=== PATIENT | male | born 1940 | race Caucasian/White ===

== ENCOUNTER 2019-03-12 06:55 | Day surgery (SDC) | payer MEDICARE, OTHER ==
[2019-03-12] MEDS ORDERED: Lidocaine 1% with EPINEPHrine 1:100,000 20 ML MDV INJECT ONE (06:56)
[2019-03-12] MEDS ORDERED: Lidocaine 1% with EPINEPHrine 1:100,000 20 ML MDV ONE (07:34)
[2019-03-12] MEDS ORDERED: Lidocaine 1% with EPINEPHrine 1:100,000 30 ML MDV INJECT ONE ×2 (09:19→09:28)
--- NOTE | 2019-03-12 19:54 | OR ---
DATE: 03/12/2019 PREOPERATIVE DIAGNOSIS: Infected sebaceous cyst, left flank of the left back. POSTOPERATIVE DIAGNOSIS: Infected sebaceous cyst, left flank of the left back. PROCEDURE: Incision and drainage with debridement of a 4 cm sebaceous cyst in the posterior back near the left flank. ANESTHESIA: Local. SPECIMEN: Sebaceous cyst. INDICATION FOR PROCEDURE: This 78-year-old male had presented to the [facility] 2 days ago with a chronic draining abscess-appearing lesion on the back. This is in the left flank. OPERATIVE FINDINGS: An infected sebaceous cyst. PROCEDURE IN DETAIL: After adequate local anesthesia, an incision was made over this cyst and carried down into the cyst, which revealed several milliliters of purulent material and some waxy material consistent with a sebaceous cyst. This area was obviously grossly infected, and the cyst wall was simply debrided from the subcutaneous space. The wound was infected. I elected not to close this. This was packed open using two 2 x 2 sponges within the wound. The cyst measured 4 cm in diameter, and on debriding this, there essentially was no margin in excising the rest of the cyst, and primarily is an incision and drainage with debridement. [facility] /[id number]
== END 2019-03-12 12:38 | disposition home or self-care (01) ==
LOC: DL.SDS 06:55
PROVIDERS: ATTEND Surgery
DX: L92.3 Foreign body granuloma of the skin and subcutaneous tissue (principal); E11.9 Type 2 diabetes mellitus without complications; I10 Essential (primary) hypertension; Z88.8 Allergy status to other drugs, medicaments and biological substances; Z79.84 Long term (current) use of oral hypoglycemic drugs; Z79.01 Long term (current) use of anticoagulants; Z79.4 Long term (current) use of insulin; Z79.899 Other long term (current) drug therapy

== ENCOUNTER 2020-08-29 15:28 | Inpatient (IN) | payer MEDICARE, OTHER ==
--- NOTE | 2020-08-29 16:37 | CR ---
PROCEDURE INFORMATION: Exam: XR Chest Exam date and time: 08/29/2020 4:30 PM Age: 80 years old Clinical indication: Other: Chest pain TECHNIQUE: Imaging protocol: XR of the chest Views: 1 view. COMPARISON: No relevant prior studies available. FINDINGS: Tubes, catheters and devices: Left pacemaker. Lungs: Patchy bilateral pulmonary infiltrates suggestive of edema or infection. Pleural spaces: Unremarkable. No pleural effusion. No pneumothorax. Heart/Mediastinum: Unremarkable. No cardiomegaly. Bones/joints: Unremarkable. IMPRESSION: Patchy bilateral pulmonary infiltrates suggestive of edema or infection.
[2020-08-29 17:32] LABS: CORONAVIRUS COVID-19 NAA NEGATIVE (NEGATIVE)
[2020-08-29] MEDS ORDERED: Piperacillin/Tazobactam 3.375 GM in Sodium Chloride 0.9% 100 ML IV ONE (17:32)
--- NOTE | 2020-08-29 18:26 | EDM.PDOC ---
Scribed by Angelique Funk 08/29/20 [id number] for Kacie Joseph NP ED HPI GENERAL MEDICAL PROBLEM - General Chief Complaint: General Stated Complaint: COULDN'T WALK, COULDN'T FEEL URINATING, NOT EATING Time Seen by Provider: 08/29/20 15:42 Source of Information: Reports: Patient, EMS, EMS Notes Reviewed, RN, RN Notes Reviewed History Limitations: Reports: No Limitations - History of Present Illness INITIAL COMMENTS - FREE TEXT/NARRATIVE: Patient is a 80-year-old male who presents to ER per [facility] with complaint of increased weakness and incontinence of urine. states over the past few days he has been much weaker, not able to walk today. His also states his Metoprolol 75mg was increased to 100mg on Sunday. states decreased color in toes today. Patient is on 02 at home Never has had COVD and x2 vaccinations. 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 Onset: Gradual Duration: Getting Worse Location: Reports: Generalized Severity: Severe Improves with: Reports: None Worsens with: Reports: None Associated Symptoms: Reports: No Other Symptoms - Related Data Allergies Allergy/AdvReac Type Severity Reaction Status Date / Time donepezil [From Aricept] AdvReac Mild Diarrhea Verified 08/29/20 18:07 Home Meds: Home Meds Acetaminophen 325 - 650 mg PO ASDIRECTED PRN 06/17/18 [History] Albuterol Sulfate [Proair Hfa] 2 puff INH Q6HR PRN 06/17/18 [History] Aspirin [Adult Low Dose Aspirin EC] 81 mg PO DAILY 06/17/18 [History] Calcium Citrate/Vitamin D3 [Calcium Citrate - Vit D Caplet] 1 tab PO BID 06/17/18 [History] Furosemide 20 mg PO DAILY 06/17/18 [History] Glucosam/Chondroit/C/Manganese [Cosamin Ds Capsule] 1 tab PO BID 06/17/18 [History] Insulin Glarg,Human.Rec.Analog [Lantus Solostar] 45 units INJECT BEDTIME 06/17/18 [History] Latanoprost/Pf [Latanoprost 0.005% Eye Drop] 1 drop EYEBOTH BEDTIME 06/17/18 [History] Memantine [Namenda] 10 mg PO BID 06/17/18 [History] Multivitamin [Multi-Day Vitamins] 1 tab PO DAILY 06/17/18 [History] Tiotropium [Spiriva HandiHaler] 1 cap INH DAILY 06/17/18 [History] Warfarin Sodium [Jantoven] 7.5 mg PO ASDIRECTED 06/17/18 [History] Warfarin Sodium [Jantoven] 10 mg PO ASDIRECTED 06/17/18 [History] atorvaSTATin [Lipitor] 40 mg PO BEDTIME 06/17/18 [History] buPROPion [Wellbutrin SR] 150 mg PO BID 06/17/18 [History] metFORMIN HCl [Glucophage] 1,000 mg PO BID 06/17/18 [History] Cholecalciferol (Vitamin D3) [Vitamin D] 2,000 unit PO DAILY 08/29/20 [History] L.acidoph,Paracasei, B.lactis [Probiotic] 1 each PO DAILY 08/29/20 [History] Metoprolol Succinate [Toprol XL 100mg] 100 mg PO DAILY 08/29/20 [History] Valsartan/Hydrochlorothiazide [Diovan Hct 160-12.5 mg Tab] 1 each PO DAILY 08/29/20 [History] glipiZIDE [Glucotrol] 5 mg PO BIDAC 08/29/20 [History] Past Medical History HEENT History: Reports: Allergic Rhinitis, Impaired Vision Cardiovascular History: Reports: Afib, High Cholesterol, Hypertension, Pacemaker, Stents Other Cardiovascular History: x3 stents Respiratory History: Reports: Bronchitis, Recurrent, SOB Genitourinary History: Reports: Prostate Disorder Musculoskeletal History: Reports: Fracture Other Musculoskeletal History: lef lower arm fracture antoinette inplace Neurological History: Reports: Concussion, Head Trauma, Other (See Below) Other Neuro History: plate in head left side 1970 Psychiatric History: Reports: Depression Endocrine/Metabolic History: Reports: Diabetes, Type II, Obesity/BMI 30+ Hematologic History: Reports: None Immunologic History: Reports: None Oncologic (Cancer) History: Reports: Prostate Dermatologic History: Reports: None - Infectious Disease History Infectious Disease History: Reports: Chicken Pox - Past Surgical History HEENT Surgical History: Reports: None Cardiovascular Surgical History: Reports: Pacer Other Cardiovascular Surgeries/Procedures: 2014 heart pacer GI Surgical History: Reports: Colonoscopy Male Surgical History: Reports: Prostatectomy Other Male Surgeries/Procedures: prostate cancer 2008 Neurological Surgical History: Reports: None Musculoskeletal Surgical History: Reports: Other (See Below) Other Musculoskeletal Surgeries/Procedures:: lef lower arm fracture antoinette inplace Oncologic Surgical History: Reports: None Social & Family History - Family History Family Medical History: No Pertinent Family History - Caffeine Use Caffeine Use: Reports: Coffee Other Caffeine Use: 2 cups ED ROS GENERAL - Review of Systems Review Of Systems: Comprehensive ROS is negative, except as noted in HPI. ED EXAM, GENERAL - Physical Exam Exam: See Below Exam Limited By: Altered Mental Status General Appearance: Moderate Distress Eye Exam: Bilateral Eye: EOMI, Normal Inspection, PERRL Ears: Normal External Exam, Normal Canal, Hearing Grossly Normal, Normal TMs Nose: Normal Inspection, Normal Mucosa, No Blood Throat/Mouth: Normal Inspection, Normal Lips, Normal Teeth, Normal Gums, Normal Oropharynx, Normal Voice, No Airway Compromise Head: Atraumatic, Normocephalic Neck: Normal Inspection, Supple, Non-Tender, Full Range of Motion Respiratory/Chest: Crackles (diminished crackles), Wheezing Cardiovascular: Other (irregular) GI/Abdominal: Normal Bowel Sounds, Soft, Non-Tender, No Organomegaly, No Distention, No Abnormal Bruit, No Mass (Male) Exam: Deferred Rectal (Males) Exam: Deferred Back Exam: Decreased Range of Motion Extremities: Other (weak) Neurological: Confused, Other (altered) Psychiatric: Anxious Skin Exam: Other (pale) Lymphatic: No Adenopathy Course - Vital Signs Last Recorded V/S: Last Vital Signs Temp 99.0 F 08/29/20 16:16 Pulse 104 H 08/29/20 16:16 Resp 22 H 08/29/20 16:16 BP Pulse Ox 99 08/29/20 16:16 - Orders/Labs/Meds Orders: Active Orders 24 hr Category Date Time Status Urinary Catheter Insertion [Insert Urinary Catheter] [ Care 08/29/20 16:30 Ordered OM.PC] Stat CULTURE BLOOD [BC] Stat Lab 08/29/20 16:36 Results CULTURE BLOOD [BC] Stat Lab 08/29/20 16:40 Results INFLUENZA A+B AG SCREEN [RM] Stat Lab 08/29/20 16:38 Ordered REFLEX LACTIC ACID YES OR NO [CHEM] Routine Lab 08/29/20 17:24 Received Blood Culture x2 Reflex Set [OM.PC] Stat Oth 08/29/20 16:16 Ordered Isolation [COMM] Routine Ot 08/29/20 16:17 Active Labs: Laboratory Tests 08/29/20 08/29/20 08/29/20 Range/Units 16:38 16:40 16:40 WBC 19.7 H (5.0-10.0) 10^3/uL RBC 4.89 (4.6-6.2) 10^6/uL Hgb 15.1 (14.0-18.0) g/dL Hct 44.3 (40.0-54.0) % MCV 90.6 (80-100) fL MCH 30.9 (27.0-34.0) pg MCHC 34.1 (33.0-35.0) g/dL Plt Count 258 (150-450) 10^3/uL Neut % (Auto) 81.2 H (42.2-75.2) % Lymph % (Auto) 5.3 L (20.5-50.1) % Banner % (Auto) 13.2 H (2-8) % Eos % (Auto) 0.1 L (1.0-3.0) % Baso % (Auto) 0.2 (0.0-1.0) % Sodium 139 (136-145) mmol/L Potassium 4.0 (3.5-5.1) mmol/L Chloride 99 (98-107) mmol/L Carbon Dioxide 22 (21-32) mmol/L Anion Gap 22.0 H (7-13) mEq/L BUN 30 H (7-18) mg/dL Creatinine 1.77 H (0.70-1.30) mg/dL Est Cr Clr Drug Dosing 37.14 mL/min Estimated GFR (MDRD) 37 BUN/Creatinine Ratio 16.9 (No establ ref range) Glucose 231 H (74-99) mg/dL Lactic Acid (0.4-2.0) mmol/L Calcium 9.4 (8.5-10.1) mg/dL Magnesium 1.9 (1.8-2.4) mg/dL Total Bilirubin 1.9 H (0.2-1.0) mg/dL AST 23 (15-37) U/L ALT 33 (16-63) U/L Alkaline Phosphatase 83 (46-116) U/L Troponin I 0.036 (0.000-0.056) ng/mL B-Natriuretic Peptide 1030 H (0-100) pg/ml Total Protein 7.1 (6.4-8.2) g/dL Albumin 3.6 (3.4-5.0) g/dL Globulin 3.5 Albumin/Globulin Ratio 1.0 Urine Color (YELLOW) Urine Appearance (CLEAR) Urine pH (5.0-9.0) Ur Specific [place] (1.005-1.030) Urine Protein (NEGATIVE) Urine Glucose (UA) (NEGATIVE) Urine Ketones (NEGATIVE) Urine Occult Blood (NEGATIVE) Urine Nitrite (NEGATIVE) Urine Bilirubin (NEGATIVE) Urine Urobilinogen (0.2-1.0) mg/dL Ur Leukocyte Esterase (NEGATIVE) U Hyaline Cast (Auto) Urine RBC /HPF Urine WBC (0-5/HPF) /HPF Ur Epithelial Cells (NOT SEEN) /HPF Urine Bacteria (0-FEW/HPF) /HPF Fine Granular Casts (NOT SEEN) /LPF Urine Mucus (NOT SEEN) /LPF Influenza Type A RNA Negative (NEGATIVE) Influenza Type B RNA Negative (NEGATIVE) SARS-CoV-2 RNA (JOEL) Negative (NEGATIVE) 08/29/20 08/29/20 Range/Units 16:40 16:46 WBC (5.0-10.0) 10^3/uL RBC (4.6-6.2) 10^6/uL Hgb (14.0-18.0) g/dL Hct (40.0-54.0) % MCV (80-100) fL MCH (27.0-34.0) pg MCHC (33.0-35.0) g/dL Plt Count (150-450) 10^3/uL Neut % (Auto) (42.2-75.2) % Lymph % (Auto) (20.5-50.1) % Banner % (Auto) (2-8) % Eos % (Auto) (1.0-3.0) % Baso % (Auto) (0.0-1.0) % Sodium (136-145) mmol/L Potassium (3.5-5.1) mmol/L Chloride (98-107) mmol/L Carbon Dioxide (21-32) mmol/L Anion Gap (7-13) mEq/L BUN (7-18) mg/dL Creatinine (0.70-1.30) mg/dL Est Cr Clr Drug Dosing mL/min Estimated GFR (MDRD) BUN/Creatinine Ratio (No establ ref range) Glucose (74-99) mg/dL Lactic Acid 6.2 H* (0.4-2.0) mmol/L Calcium (8.5-10.1) mg/dL Magnesium (1.8-2.4) mg/dL Total Bilirubin (0.2-1.0) mg/dL AST (15-37) U/L ALT (16-63) U/L Alkaline Phosphatase (46-116) U/L Troponin I (0.000-0.056) ng/mL B-Natriuretic Peptide (0-100) pg/ml Total Protein (6.4-8.2) g/dL Albumin (3.4-5.0) g/dL Globulin Albumin/Globulin Ratio Urine Color Yellow (YELLOW) Urine Appearance Slightly cloudy (CLEAR) Urine pH 5.0 (5.0-9.0) Ur Specific [place] 1.025 (1.005-1.030) Urine Protein 30 H (NEGATIVE) Urine Glucose (UA) 500 H (NEGATIVE) Urine Ketones Trace H (NEGATIVE) Urine Occult Blood Moderate H (NEGATIVE) Urine Nitrite Negative (NEGATIVE) Urine Bilirubin Negative (NEGATIVE) Urine Urobilinogen 0.2 (0.2-1.0) mg/dL Ur Leukocyte Esterase Negative (NEGATIVE) U Hyaline Cast (Auto) Moderate Urine RBC >100 H /HPF Urine WBC 0-5 (0-5/HPF) /HPF Ur Epithelial Cells Few (NOT SEEN) /HPF Urine Bacteria Rare (0-FEW/HPF) /HPF Fine Granular Casts Few H (NOT SEEN) /LPF Urine Mucus Few H (NOT SEEN) /LPF Influenza Type A RNA (NEGATIVE) Influenza Type B RNA (NEGATIVE) SARS-CoV-2 RNA (JOEL) (NEGATIVE) Meds: Medications Discontinued Medications Generic Name Dose Route Start Last Admin Trade Name Freq PRN Reason Stop Dose Admin Piperacillin Sod/Tazobactam 100 mls @ 200 mls/hr 08/29/20 17:32 08/29/20 17:39 Sod 3.375 gm/ Sodium Chloride IV 08/29/20 18:01 200 mls/hr ONETIME ONE Administration - Radiology Interpretation Free Text/Narrative:: Chest xray: PROCEDURE INFORMATION: Exam: XR Chest Exam date and time: 08/29/2020 4:30 PM Age: 80 years old Clinical indication: Other: Chest pain TECHNIQUE: Imaging protocol: XR of the chest Views: 1 view. COMPARISON: No relevant prior studies available. FINDINGS: Tubes, catheters and devices: Left pacemaker. Lungs: Patchy bilateral pulmonary infiltrates suggestive of edema or infection. Pleural spaces: Unremarkable. No pleural effusion. No pneumothorax. Heart/Mediastinum: Unremarkable. No cardiomegaly. Bones/joints: Unremarkable. IMPRESSION: Patchy bilateral pulmonary infiltrates suggestive of edema or infection. Thank you for allowing us to participate in the care of your patient. Dictated and Authenticated by: Millie Khan MD 08/29/2020 4:37 PM Central Time ([place] & [place]) See rad report - Re-Assessments/Exams Free Text/Narrative Re-Assessment/Exam: 08/29/20 18:24 Discussed patient case with Dr. Bravo who agreed to accept the patient for acute admission. Departure - Departure Time of Disposition: 17:55 Disposition: Admitted As Inpatient 67 Condition: Fair Clinical Impression: Pneumonia Qualifiers: Pneumonia type: due to unspecified organism Laterality: bilateral Lung location: unspecified part of lung Qualified Code(s): J18.9 - Pneumonia, unspecified organism - Discharge Information *PRESCRIPTION DRUG MONITORING PROGRAM REVIEWED*: No *COPY OF PRESCRIPTION DRUG MONITORING REPORT IN PATIENT FRANK: No Sepsis Event Note (ED) - Focused Exam Vital Signs: Vital Signs Temp Pulse Resp Pulse Ox 08/29/20 16:16 99.0 F 104 H 22 H 99 - My Orders Last 24 Hours: My Active Orders 08/29/20 16:16 Blood Culture x2 Reflex Set [OM.PC] Stat 08/29/20 16:17 Isolation [COMM] Routine 08/29/20 16:30 Urinary Catheter Insertion [Insert Urinary Catheter] [OM.PC] Stat 08/29/20 16:36 CULTURE BLOOD [BC] Stat 08/29/20 16:38 INFLUENZA A+B AG SCREEN [RM] Stat 08/29/20 16:40 CULTURE BLOOD [BC] Stat 08/29/20 17:24 REFLEX LACTIC ACID YES OR NO [CHEM] Routine - Assessment/Plan Last 24 Hours: My Active Orders 08/29/20 16:16 Blood Culture x2 Reflex Set [OM.PC] Stat 08/29/20 16:17 Isolation [COMM] Routine 08/29/20 16:30 Urinary Catheter Insertion [Insert Urinary Catheter] [OM.PC] Stat 08/29/20 16:36 CULTURE BLOOD [BC] Stat 08/29/20 16:38 INFLUENZA A+B AG SCREEN [RM] Stat 08/29/20 16:40 CULTURE BLOOD [BC] Stat 08/29/20 17:24 REFLEX LACTIC ACID YES OR NO [CHEM] Routine I have read and agree with the documentation that has been completed regarding this visit. By signing this record, I attest that the documentation was completed in my physical presence and is an accurate record of the encounter.
--- NOTE | 2020-08-29 18:40 | PCM.HP ---
H&P History of Present Illness - General Date of Service: 08/29/20 Admit Problem/Dx: Admission Diagnosis/Problem Admission Diagnosis/Problem Pneumonia Source of Information: Patient, Family History Limitations: Reports: Other (Mild cognitive impairment) - History of Present Illness Initial Comments - Free Text/Narative: Patient is a 80-year-old male with a medical history of hypertension, type 2 diabetes mellitus, CAD, atrial fibrillation status post pacemaker, chronic an ticoagulation with Coumadin, CKD, hyperlipidemia, chronic diastolic CHF, prostate cancer who presented to the ER with complaints of generalized weakness, urinary incontinence and shortness of breath. History difficult to obtain from patient due to mild cognitive impairment Patient reports that over the past few days patient has become very weak more than usual and short of breath with activity. In the past couple days he has had urinary incontinence mostly because he is unable to get to the bathroom quickly enough due to his weakness before he urinates. He has had temperatures of 99.9 at home, has had occasional coughing which is nonproductive. He denies chest pain, dizziness, diarrhea, abdominal pain, nausea, vomiting. Leg swelling is chronic and unchanged. According to his , his metoprolol was recently increased from 75 mg to 100 mg daily 2 days ago. Labs showed WBC of 19.7, creatinine of 1.77, glucose of 231, lactic acid of 6.2, BNP of 1030, troponin was negative. UA was negative for UTI but showed trace blood. Covid and influenza test were negative. Chest x-ray showed bilateral patchy pulmonary infiltrates suggestive of edema or infection. - Related Data Allergies/Adverse Reactions: Allergies Allergy/AdvReac Type Severity Reaction Status Date / Time donepezil [From Aricept] AdvReac Mild Diarrhea Verified 08/29/20 18:07 Home Medications: Home Meds Acetaminophen 325 - 650 mg PO ASDIRECTED PRN 06/17/18 [History] Albuterol Sulfate [Proair Hfa] 2 puff INH Q6HR PRN 06/17/18 [History] Aspirin [Adult Low Dose Aspirin EC] 81 mg PO BEDTIME 06/17/18 [History] Calcium Citrate/Vitamin D3 [Calcium Citrate - Vit D Caplet] 1 tab PO BID 06/17/18 [History] Furosemide 20 mg PO DAILY 06/17/18 [History] Glucosam/Chondroit/C/Manganese [Cosamin Ds Capsule] 1 tab PO BID 06/17/18 [History] Insulin Glarg,Human.Rec.Analog [Lantus Solostar] 45 units INJECT BEDTIME 06/17/18 [History] Latanoprost/Pf [Latanoprost 0.005% Eye Drop] 1 drop EYEBOTH BID 06/17/18 [History] Memantine [Namenda] 10 mg PO BID 06/17/18 [History] Multivitamin [Multi-Day Vitamins] 1 tab PO DAILY 06/17/18 [History] Tiotropium [Spiriva HandiHaler] 1 cap INH DAILY 06/17/18 [History] Warfarin Sodium [Jantoven] 7.5 mg PO ASDIRECTED 06/17/18 [History] Warfarin Sodium [Jantoven] 10 mg PO ASDIRECTED 06/17/18 [History] atorvaSTATin [Lipitor] 40 mg PO BEDTIME 06/17/18 [History] buPROPion [Wellbutrin SR] 150 mg PO DAILY 06/17/18 [History] metFORMIN HCl [Glucophage] 1,000 mg PO BID 06/17/18 [History] Cholecalciferol (Vitamin D3) [Vitamin D] 2,000 unit PO DAILY 08/29/20 [History] L.acidoph,Paracasei, B.lactis [Probiotic] 1 each PO DAILY 08/29/20 [History] Metoprolol Succinate [Toprol XL 100mg] 100 mg PO DAILY 08/29/20 [History] Valsartan/Hydrochlorothiazide [Diovan Hct 160-12.5 mg Tab] 1 each PO DAILY 08/29/20 [History] glipiZIDE [Glucotrol] 5 mg PO BIDAC 08/29/20 [History] Past Medical History HEENT History: Reports: Allergic Rhinitis, Impaired Vision Cardiovascular History: Reports: Afib, High Cholesterol, Hypertension, Pacemaker, Stents Other Cardiovascular History: x3 stents Respiratory History: Reports: Bronchitis, Recurrent, SOB Genitourinary History: Reports: Prostate Disorder Musculoskeletal History: Reports: Fracture Other Musculoskeletal History: lef lower arm fracture antoinette inplace Neurological History: Reports: Concussion, Head Trauma, Other (See Below) Other Neuro History: plate in head left side 1970 Psychiatric History: Reports: Depression Endocrine/Metabolic History: Reports: Diabetes, Type II, Obesity/BMI 30+ Hematologic History: Reports: None Immunologic History: Reports: None Oncologic (Cancer) History: Reports: Prostate Dermatologic History: Reports: Decubitus Ulcer - Infectious Disease History Infectious Disease History: Reports: Chicken Pox - Past Surgical History HEENT Surgical History: Reports: None Cardiovascular Surgical History: Reports: Pacer Other Cardiovascular Surgeries/Procedures: 2014 heart pacer GI Surgical History: Reports: Colonoscopy Male Surgical History: Reports: Prostatectomy Other Male Surgeries/Procedures: prostate cancer 2007 Neurological Surgical History: Reports: None Musculoskeletal Surgical History: Reports: Other (See Below) Other Musculoskeletal Surgeries/Procedures:: lef lower arm fracture antoinette inplace Oncologic Surgical History: Reports: None Social & Family History - Family History Family Medical History: No Pertinent Family History - Tobacco Use Tobacco Use Status *Q: Former Tobacco User Used Tobacco, but Quit: Yes Month/Year Tobacco Last Used: 07/1969 - Caffeine Use Caffeine Use: Reports: Coffee Other Caffeine Use: 2 cups - Recreational Drug Use Recreational Drug Use: No H&P Review of Systems - Review of Systems: Review Of Systems: See Below General: Reports: Weakness HEENT: Reports: No Symptoms Pulmonary: Reports: Shortness of Breath, Cough Cardiovascular: Reports: No Symptoms Gastrointestinal: Reports: No Symptoms Genitourinary: Reports: Incontinence. Denies: Burning, Pain Musculoskeletal: Reports: No Symptoms Skin: Reports: No Symptoms Psychiatric: Reports: No Symptoms Neurological: Reports: No Symptoms Hematologic/Lymphatic: Reports: No Symptoms Immunologic: Reports: No Symptoms Exam - Exam Exam: See Below - Vital Signs Vital Signs: Last Vital Signs Temp 99.0 F 08/29/20 18:06 Pulse 121 H 08/29/20 18:06 Resp 20 08/29/20 18:06 BP 121/94 H 08/29/20 18:06 Pulse Ox 95 08/29/20 18:06 Weight: 254 lb 3.2 oz - Exam General: Alert, Oriented, 4 HEENT: Conjunctiva Clear Neck: Supple, Trachea Midline, 2 Lungs: Rales Cardiovascular: Regular Rate, Regular Rhythm, Tachycardia GI/Abdominal Exam: Normal Bowel Sounds, Soft, Non-Tender, No Organomegaly, No Distention, No Abnormal Bruit, No Mass, Pelvis Stable Back Exam: Normal Inspection, Full Range of Motion, NT Extremities: Normal Inspection, Normal Range of Motion, Non-Tender, No Pedal Edema, Normal Capillary Refill Skin: Warm, Dry, Intact Neurological: Cranial Nerves Intact, Reflexes Equal Bilateral Neuro Extensive - Mental Status: Alert, Normal Mood/Affect, Normal Cognition, Disorientation to Time Neuro Extensive - Motor, Sensory, Reflexes: CN II-XII Intact, Normal Gait, Normal Reflexes Psychiatric: Alert, Normal Affect, Normal Mood - Patient Data Lab Results Last 24 hrs: Laboratory Results - last 24 hr 08/29/20 08/29/20 08/29/20 Range/Units 16:38 16:40 16:40 WBC 19.7 H (5.0-10.0) 10^3/uL RBC 4.89 (4.6-6.2) 10^6/uL Hgb 15.1 (14.0-18.0) g/dL Hct 44.3 (40.0-54.0) % MCV 90.6 (80-100) fL MCH 30.9 (27.0-34.0) pg MCHC 34.1 (33.0-35.0) g/dL Plt Count 258 (150-450) 10^3/uL Neut % (Auto) 81.2 H (42.2-75.2) % Lymph % (Auto) 5.3 L (20.5-50.1) % [place] % (Auto) 13.2 H (2-8) % Eos % (Auto) 0.1 L (1.0-3.0) % Baso % (Auto) 0.2 (0.0-1.0) % Sodium 139 (136-145) mmol/L Potassium 4.0 (3.5-5.1) mmol/L Chloride 99 (98-107) mmol/L Carbon Dioxide 22 (21-32) mmol/L Anion Gap 22.0 H (7-13) mEq/L BUN 30 H (7-18) mg/dL Creatinine 1.77 H (0.70-1.30) mg/dL Est Cr Clr Drug Dosing 37.14 mL/min Estimated GFR (MDRD) 37 BUN/Creatinine Ratio 16.9 (No establ ref range) Glucose 231 H (74-99) mg/dL Lactic Acid (0.4-2.0) mmol/L Calcium 9.4 (8.5-10.1) mg/dL Magnesium 1.9 (1.8-2.4) mg/dL Total Bilirubin 1.9 H (0.2-1.0) mg/dL AST 23 (15-37) U/L ALT 33 (16-63) U/L Alkaline Phosphatase 83 (46-116) U/L Troponin I 0.036 (0.000-0.056) ng/mL B-Natriuretic Peptide 1030 H (0-100) pg/ml Total Protein 7.1 (6.4-8.2) g/dL Albumin 3.6 (3.4-5.0) g/dL Globulin 3.5 Albumin/Globulin Ratio 1.0 Urine Color (YELLOW) Urine Appearance (CLEAR) Urine pH (5.0-9.0) Ur Specific [place] (1.005-1.030) Urine Protein (NEGATIVE) Urine Glucose (UA) (NEGATIVE) Urine Ketones (NEGATIVE) Urine Occult Blood (NEGATIVE) Urine Nitrite (NEGATIVE) Urine Bilirubin (NEGATIVE) Urine Urobilinogen (0.2-1.0) mg/dL Ur Leukocyte Esterase (NEGATIVE) U Hyaline Cast (Auto) Urine RBC /HPF Urine WBC (0-5/HPF) /HPF Ur Epithelial Cells (NOT SEEN) /HPF Urine Bacteria (0-FEW/HPF) /HPF Fine Granular Casts (NOT SEEN) /LPF Urine Mucus (NOT SEEN) /LPF Influenza Type A RNA Negative (NEGATIVE) Influenza Type B RNA Negative (NEGATIVE) SARS-CoV-2 RNA (JOEL) Negative (NEGATIVE) 08/29/20 08/29/20 Range/Units 16:40 16:46 WBC (5.0-10.0) 10^3/uL RBC (4.6-6.2) 10^6/uL Hgb (14.0-18.0) g/dL Hct (40.0-54.0) % MCV (80-100) fL MCH (27.0-34.0) pg MCHC (33.0-35.0) g/dL Plt Count (150-450) 10^3/uL Neut % (Auto) (42.2-75.2) % Lymph % (Auto) (20.5-50.1) % [place] % (Auto) (2-8) % Eos % (Auto) (1.0-3.0) % Baso % (Auto) (0.0-1.0) % Sodium (136-145) mmol/L Potassium (3.5-5.1) mmol/L Chloride (98-107) mmol/L Carbon Dioxide (21-32) mmol/L Anion Gap (7-13) mEq/L BUN (7-18) mg/dL Creatinine (0.70-1.30) mg/dL Est Cr Clr Drug Dosing mL/min Estimated GFR (MDRD) BUN/Creatinine Ratio (No establ ref range) Glucose (74-99) mg/dL Lactic Acid 6.2 H* (0.4-2.0) mmol/L Calcium (8.5-10.1) mg/dL Magnesium (1.8-2.4) mg/dL Total Bilirubin (0.2-1.0) mg/dL AST (15-37) U/L ALT (16-63) U/L Alkaline Phosphatase (46-116) U/L Troponin I (0.000-0.056) ng/mL B-Natriuretic Peptide (0-100) pg/ml Total Protein (6.4-8.2) g/dL Albumin (3.4-5.0) g/dL Globulin Albumin/Globulin Ratio Urine Color Yellow (YELLOW) Urine Appearance Slightly cloudy (CLEAR) Urine pH 5.0 (5.0-9.0) Ur Specific [place] 1.025 (1.005-1.030) Urine Protein 30 H (NEGATIVE) Urine Glucose (UA) 500 H (NEGATIVE) Urine Ketones Trace H (NEGATIVE) Urine Occult Blood Moderate H (NEGATIVE) Urine Nitrite Negative (NEGATIVE) Urine Bilirubin Negative (NEGATIVE) Urine Urobilinogen 0.2 (0.2-1.0) mg/dL Ur Leukocyte Esterase Negative (NEGATIVE) U Hyaline Cast (Auto) Moderate Urine RBC >100 H /HPF Urine WBC 0-5 (0-5/HPF) /HPF Ur Epithelial Cells Few (NOT SEEN) /HPF Urine Bacteria Rare (0-FEW/HPF) /HPF Fine Granular Casts Few H (NOT SEEN) /LPF Urine Mucus Few H (NOT SEEN) /LPF Influenza Type A RNA (NEGATIVE) Influenza Type B RNA (NEGATIVE) SARS-CoV-2 RNA (JOEL) (NEGATIVE) Result Diagrams: 08/29/20 16:40 08/29/20 16:40 Kraig Results Last 24 hrs: Microbiology 08/29/20 16:40 Anaerobic Blood Culture - Final Blood - Arm, Right 08/29/20 16:36 Anaerobic Blood Culture - Final Blood - Venous - Iv Start Problem List Initiated/Reviewed/Updated: Yes Orders Last 24hrs: Active Orders 24 hr Category Date Time Status Admission Diagnosis [ADT] Routine ADT 08/29/20 17:54 Ordered Patient Status [ADT] Routine ADT 08/29/20 17:54 Active Cardiac Monitoring [RC] CONTINUOUS Care 08/29/20 18:33 Ordered Intake and Output [RC] QSHIFT Care 08/29/20 18:33 Ordered Oxygen Therapy [RC] PRN Care 08/29/20 18:33 Ordered RT Post Treatment Assessment [RC] Click to Edit Care 08/29/20 18:37 Ordered RT Pre-Treatment Assessment [RC] Click to Edit Care 08/29/20 18:37 Ordered Up With Assistance [RC] ASDIRECTED Care 08/29/20 18:33 Ordered Urinary Catheter Insertion [Insert Urinary Catheter] [ Care 08/29/20 16:30 Ordered OM.PC] Stat VTE/DVT Education [RC] PER UNIT ROUTINE Care 08/29/20 18:33 Ordered Vital Signs [RC] Q4H Care 08/29/20 18:33 Ordered 2 Gram Sodium Diet [DIET] Diet 08/29/20 Dinner Ordered CULTURE BLOOD [BC] Stat Lab 08/29/20 16:36 Results CULTURE BLOOD [BC] Stat Lab 08/29/20 16:40 Results CULTURE SPUTUM + SMEAR [RM] Stat Lab 08/29/20 18:33 Ordered INFLUENZA A+B AG SCREEN [RM] Stat Lab 08/29/20 16:38 Ordered REFLEX LACTIC ACID YES OR NO [CHEM] Routine Lab 08/29/20 17:24 Received Acetaminophen [TylenoL] Med 08/29/20 18:33 Ordered 650 mg PO Q4H PRN Albuterol [Proventil HFA] Med 08/29/20 18:35 Ordered 2 puff INH Q6HR PRN Aspirin [Halfprin] Med 08/29/20 21:00 Ordered 81 mg PO BEDTIME Calcium Citrate/Vitamin D3 [Calcium Citrate - Vit D Med 08/29/20 21:00 Ordered Caplet] 1 tab PO BID Cholecalciferol (Vitamin D3) [Vitamin D] Med 08/30/20 09:00 Ordered 2,000 unit PO DAILY Insulin Glarg,Human.Rec.Analog [Lantus Solostar] Med 08/29/20 21:00 Ordered 45 units INJECT BEDTIME L.acidoph,Paracasei, B.lactis [Probiotic] Med 08/30/20 09:00 Ordered 1 each PO DAILY Latanoprost/Pf [Latanoprost 0.005% Eye Drop] Med 08/29/20 21:00 Ordered 1 drop EYEBOTH BID Memantine [Namenda] Med 08/29/20 21:00 Ordered 10 mg PO BID Multivitamin [Multi-Day Vitamins] Med 08/30/20 09:00 Ordered 1 tab PO DAILY Pharmacy to Dose - Warfarin Med 08/29/20 18:45 Ordered 1 dose .XX ASDIRECTED Piperacillin/Tazobactam [Zosyn] 2.25 gm Med 08/30/20 00:00 Ordered Sodium Chloride 0.9% [Normal Saline] 50 ml IV Q6HR Sodium Chloride 0.9% [Normal Saline] 1,000 ml Med 08/29/20 18:45 Ordered IV .BOLUS Tiotropium [Spiriva HandiHaler] Med 08/30/20 09:00 Ordered 1 cap INH DAILY atorvaSTATin [Lipitor] Med 08/29/20 21:00 Ordered 40 mg PO BEDTIME buPROPion [Wellbutrin SR] Med 08/30/20 09:00 Ordered 150 mg PO DAILY Blood Culture x2 Reflex Set [OM.PC] Stat Oth 08/29/20 16:16 Ordered Isolation [COMM] Routine Oth 08/29/20 16:17 Active Resuscitation Status Routine Resus Stat 08/29/20 18:33 Ordered Medication Orders Acetaminophen (Tylenol) 650 mg PO Q4H PRN PRN Reason: Pain (Mild 1-3)/fever Albuterol (Proventil Hfa) gm INH Q6HR PRN PRN Reason: Dyspnea Aspirin (Halfprin) 81 mg PO BEDTIME SUDHA Bupropion HCl (Wellbutrin Sr) 150 mg PO DAILY SUDHA Sodium Chloride (Normal Saline) 1,000 mls @ 1,000 mls/hr IV .BOLUS SUDHA Memantine (Namenda) 10 mg PO BID SUDHA Non-Formulary Medication (Atorvastatin [Lipitor]) 40 mg PO BEDTIME SUDHA Non-Formulary Medication (Calcium Citrate/Vitamin D3 [Calcium Citrate - Vit D Caplet]) 1 tab PO BID SUDHA Non-Formulary Medication (Cholecalciferol (Vitamin D3) [Vitamin D]) 2,000 unit PO DAILY SUDHA Non-Formulary Medication (Insulin Glarg,Human.Rec.Analog [Lantus Solostar]) 45 units INJECT BEDTIME SUDHA Non-Formulary Medication (L.Acidoph,Paracasei, B.Lactis [Probiotic]) 1 each PO DAILY SUDHA Non-Formulary Medication (Latanoprost/Pf [Latanoprost 0.005% Eye Drop]) 1 drop EYEBOTH BID SUDHA Non-Formulary Medication (Multivitamin [Multi-Day Vitamins]) 1 tab PO DAILY SUDHA Tiotropium [place] (Spiriva Handihaler) mcg INH DAILY SUDHA Assessment/Plan Comment:: Sepsis Bilateral pneumonia Lactic acidosis Tachycardia of 120s, tachypnea in the low 20s, leukocytosis, lactic acidosis, chest x-ray with pulmonary opacities. Blood and sputum cultures pending Start patient on vancomycin and Zosyn. Likely de-escalate antibiotics with improvement tomorrow. Oxygen supplementation as needed Give 1 L IV fluid Trend lactic acid Acute on chronic diastolic CHF BNP elevated at 1030 Hold diuretics for now due to sepsis. Will likely restart diuretics tomorrow if blood pressure remains stable. Strict I's and O's and daily weights Hypertension Hold antihypertensives for now Type 2 diabetes mellitus Resume home insulin regimen Sliding scale insulin with hypoglycemia protocol CKD Renal function appears to be at baseline Chronic atrial fibrillation Status post pacemaker Chronic anticoagulation Hold beta-shanda for now Resume home anticoagulation per pharmacy Hyperlipidemia Resume home statin therapy Prostate cancer Urinary incontinence Resume home tamsulosin Mild cognitive impairment Chronic. Likely has undiagnosed dementia. Generalized weakness PT/OT DVT prophylaxis: On Coumadin CODE STATUS: Full code
[2020-08-29] MEDS ORDERED: Sodium Chloride 0.9% 1,000 ML IV SCH ×2 (18:45→18:49)
[2020-08-29] MEDS ORDERED: Glucagon,Human Recombinant 1 MG Vial IM PRN (19:22)
[2020-08-29] MEDS ORDERED: 50% Dextrose in Water 50 ML Syringe IV PRN (19:22)
[2020-08-29] MEDS: Latanoprost 0.005% Ophth Soln 2.5 ML Bottle EYEBOTH SCH (22:26)
[2020-08-29] MEDS: Insulin Lispro 100 Units/ML 3 ML Vial SUBCUT SCH (22:28)
[2020-08-29] MEDS: Nystatin Topical Powder 30 GM Bottle TOP SCH (22:30)
[2020-08-29] MEDS: atorvaSTATin 20 MG Tab PO SCH (22:30)
[2020-08-29] MEDS: Aspirin 81 MG Tab.EC PO SCH (22:30)
[2020-08-29] MEDS: Calcium Carbonate/Vitamin D3 1250 MG-200 Unit Tab PO SCH (22:30)
[2020-08-29] MEDS: Memantine 10 MG Tab PO SCH (22:30)
[2020-08-29] MEDS: Insulin Glarg,Human.Rec.Analog 100 Unit/ML SUBCUT SCH (23:08)
[2020-08-30] MEDS ORDERED: Piperacillin/Tazobactam 2.25 GM in Sodium Chloride 0.9% 50 ML IV SCH ×2
[2020-08-30] MEDS ORDERED: Midodrine 2.5 MG Tab PO ONE (00:34)
[2020-08-30] MEDS: Sodium Chloride 0.9% 10 ML Syringe FLUSH PRN ×6 (00:57→23:38)
[2020-08-30] MEDS ORDERED: Sodium Chloride 0.9% 1,000 ML IV SCH (01:00)
[2020-08-30 04:45] LABS: ANION GAP 13.2 mEq/L (7-13)
[2020-08-30] MEDS: Albuterol 6.7 GM Inhaler INH PRN (05:16)
[2020-08-30] MEDS: Piperacillin/Tazobactam 2.25 GM in Sodium Chloride 0.9% 50 ML IV SCH ×4 (05:19→23:38)
[2020-08-30] MEDS ORDERED: Metoprolol Tartrate 5 MG/5 ML SDV IVPUSH ONE ×2 (08:03→19:16)
[2020-08-30] MEDS ORDERED: Furosemide 20 MG/2 ML VIAL IVPUSH ONE (08:30)
[2020-08-30] MEDS: Insulin Lispro 100 Units/ML 3 ML Vial SUBCUT SCH ×4 (09:35→21:56)
[2020-08-30] MEDS: Nystatin Topical Powder 30 GM Bottle TOP SCH ×2 (09:37→21:35)
[2020-08-30] MEDS: Latanoprost 0.005% Ophth Soln 2.5 ML Bottle EYEBOTH SCH ×2 (09:37→21:36)
[2020-08-30] MEDS: Calcium Carbonate/Vitamin D3 1250 MG-200 Unit Tab PO SCH ×2 (09:45→21:39)
[2020-08-30] MEDS: buPROPion 150 MG Tab.SR PO SCH (09:45)
[2020-08-30] MEDS: Multivitamins,Therapeutic Tab PO SCH (09:45)
[2020-08-30] MEDS: Cholecalciferol (Vitamin D3) 25 MCG Tab PO SCH (09:45)
[2020-08-30] MEDS: Memantine 10 MG Tab PO SCH ×2 (09:45→21:39)
[2020-08-30] MEDS: Tiotropium Inhaler 18 MCG Inhalation Powder Cap Kit of 5 INH SCH (09:46)
[2020-08-30] MEDS: Acetaminophen 325 MG Tab PO PRN ×2 (09:51→21:53)
[2020-08-30] MEDS ORDERED: Furosemide 40 MG/4 ML VIAL IVPUSH ONE (14:46)
[2020-08-30] MEDS: Digoxin 500 MCG/2 ML Amp IVPUSH SCH ×2 (15:23→21:26)
[2020-08-30] MEDS: Aspirin 81 MG Tab.EC PO SCH (21:39)
[2020-08-30] MEDS: atorvaSTATin 20 MG Tab PO SCH (21:39)
[2020-08-30] MEDS: Insulin Glarg,Human.Rec.Analog 100 Unit/ML SUBCUT SCH ×2 (21:55→21:59)
[2020-08-30] MEDS: Metoprolol Tartrate 5 MG/5 ML SDV IVPUSH SCH (23:04)
[2020-08-31] MEDS: Metoprolol Tartrate 5 MG/5 ML SDV IVPUSH SCH ×2 (00:28→05:13)
[2020-08-31] MEDS: Digoxin 500 MCG/2 ML Amp IVPUSH SCH (02:39)
[2020-08-31] MEDS: Sodium Chloride 0.9% 10 ML Syringe FLUSH PRN ×4 (02:40→13:00)
[2020-08-31] MEDS: Furosemide 40 MG/4 ML VIAL IVPUSH SCH ×2 (05:27→15:15)
[2020-08-31] MEDS: Piperacillin/Tazobactam 2.25 GM in Sodium Chloride 0.9% 50 ML IV SCH ×3 (05:30→17:39)
[2020-08-31 07:04] LABS: ANION GAP 10.2 mEq/L (7-13)
[2020-08-31] MEDS ORDERED: Potassium Chloride 10 MEQ Tab.ER PO ONE (07:27)
[2020-08-31] MEDS: Latanoprost 0.005% Ophth Soln 2.5 ML Bottle EYEBOTH SCH ×2 (08:51→21:38)
[2020-08-31] MEDS: Tiotropium Inhaler 18 MCG Inhalation Powder Cap Kit of 5 INH SCH (08:52)
[2020-08-31] MEDS: Multivitamins,Therapeutic Tab PO SCH (08:54)
[2020-08-31] MEDS: Cholecalciferol (Vitamin D3) 25 MCG Tab PO SCH (08:54)
[2020-08-31] MEDS: buPROPion 150 MG Tab.SR PO SCH (08:55)
[2020-08-31] MEDS: Calcium Carbonate/Vitamin D3 1250 MG-200 Unit Tab PO SCH ×2 (08:55→21:40)
[2020-08-31] MEDS: Memantine 10 MG Tab PO SCH ×2 (08:55→21:40)
[2020-08-31] MEDS: Insulin Lispro 100 Units/ML 3 ML Vial SUBCUT SCH ×4 (08:58→21:33)
[2020-08-31] MEDS: Nystatin Topical Powder 30 GM Bottle TOP SCH ×2 (09:03→21:37)
[2020-08-31] MEDS ORDERED: Bisacodyl 5 MG Tab PO ONE (11:00)
[2020-08-31] MEDS ORDERED: Metoprolol Succinate 50 MG Tab.ER PO SCH (11:15)
[2020-08-31] MEDS: Non-Formulary Medication 1 Each (L.Acidoph,Paracasei, B.Lactis [Probiotic] 1 EACH) PO SCH ×2 (12:38→12:39)
[2020-08-31] MEDS: Docusate Sodium 100 MG Cap PO SCH ×2 (13:05→21:40)
[2020-08-31] MEDS ORDERED: Warfarin 5 MG Tab PO ONE (14:00)
[2020-08-31] MEDS ORDERED: Metoprolol Tartrate 5 MG/5 ML SDV IVPUSH ONE (14:30)
--- NOTE | 2020-08-31 15:40 | PN ---
DATE: 08/30/2020 SUBJECTIVE: This morning, he was mildly confused. Follows commands. He was also noted in mild respiratory distress with audible wheezing. He was noted to have a low-grade temperature overnight. T-max was 99.5. Respiratory rate in the 20s, O2 sats in the low to mid 90s on 2L of nasal cannula oxygen supplementation. Systolic blood pressures ranging from 102 to 120. Once the patient was placed on the playground monitor, he was noted to be in rapid atrial fibrillation up to 120s to 130s. He denied any chest pain, abdominal pain, nausea, or other urinary symptoms although Lopez catheter was placed overnight for Is and Os monitoring. PHYSICAL EXAMINATION: General: Alert and oriented x2 at best. HEENT: Normal sclerae. Neck: Supple. Lungs: With bibasilar decreased breath sounds, diffuse wheezing. Cardiovascular: Tachycardic with irregularly irregular heart rhythm. Abdomen: Obese. Mildly distended. Nontender. Positive bowel sounds. There is fungal rash under the panus. Genitourinary: Lopez catheter is in place. There is a circumferential abrasion on the head of the penis. Extremities: Lower extremities with 1+ bilateral pitting edema. Neurologic: Grossly intact. Skin: Dry, intact. ASSESSMENT AND PLAN: 1. Sepsis secondary to possible bilateral pneumonia, lactic acidosis. Lactic acidosis has improved with fluid resuscitation. We will continue broad spectrum antibiotics pending blood culture results. We will send sputum sample. We will abstain from further IV fluid resuscitation given fluid overload. 2. Acute on chronic diastolic congestive heart failure. BNP is elevated. We will start diuresis. Trial of 20 mg of IV Lasix in the morning did not produce adequate diuresis. We will increase dose to 40 mg IV push and keep strict Is and Os. 3. Rapid atrial fibrillation. Discussed with the patient's outpatient cardiology provider, RITO Esposito. She notes that atrial fibrillation has been difficult to control as outpatient. His metoprolol was recently increased to 100 mg once daily. Given borderline blood pressures, ongoing sepsis, and aggressive diuresis, we will hold off any further long-acting vasoactive agents. The patient did receive a small dose of 2.5 mg IV lopressor in the morning with only modest improvement in heart rate control. We will load on digoxin 0.25 mg IV push q.6 hours x3 doses to allow for more blood pressure room for diuresis. Halt Coumadin given elevated INR. Ultimately, according to RITO Esposito, the patient is in need of Watchman device and ablation for his atrial fibrillation. 4. Demand ischemia. The patient did have a small troponin leak, max 0.1, and this has trended down. This is in the setting of all the above. EKG with very mild lateral ST depression. Also while the patient is tachycardic with rapid atrial fibrillation, we will hold off any heparin drip. The patient is still anticoagulated on Coumadin and is on antiplatelets. 5. Type 2 diabetes. Continue home insulin regimen. 6. Chronic kidney disease 3. Kidney function is stable. 7. Hyperlipidemia. Continue home statin. 8. Prostate cancer, urinary incontinence. Lopez was placed on admission mainly to monitor Is and Os. I hope to remove this tomorrow. Continue home Flomax for now. 9. Mild cognitive impairment. Dementia has been suspected. Currently, the patient likely with a degree of hypoactive delirium. 10.Deep venous thrombosis prophylaxis. The patient still with supratherapeutic INR. 11.Code status, full code. This has been discussed with the , and she wishes to maintain full code. [facility] /[id number]
--- NOTE | 2020-08-31 17:36 | PCM.PN ---
- General Info Date of Service: 08/31/20 Subjective Update: Overnight w/ good HR control ~90s. Sped up during the day after PT trial. Then again 130s most of the day. No BM in 4 days. Breathing easier. More alert. W melina updated at bedside. - Patient Data Vitals - Most Recent: Last Vital Signs Temp 99.3 F 08/31/20 16:26 Pulse 99 08/31/20 16:26 Resp 25 H 08/31/20 16:26 BP 117/67 08/31/20 16:26 Pulse Ox 97 08/31/20 16:26 Weight - Most Recent: 259 lb 14.4 oz I&O - Last 24 Hours: Intake & Output 08/31/20 08/31/20 08/31/20 06:59 14:59 22:59 Intake Total 200 1397 Output Total 275 600 Balance -75 797 Lab Results Last 24 Hours: Laboratory Results - last 24 hr 08/30/20 08/31/20 08/31/20 Range/Units 20:34 06:32 06:32 WBC 12.2 H (5.0-10.0) 10^3/uL RBC 4.05 L (4.6-6.2) 10^6/uL Hgb 12.4 L (14.0-18.0) g/dL Hct 37.0 L (40.0-54.0) % MCV 91.4 (80-100) fL MCH 30.6 (27.0-34.0) pg MCHC 33.5 (33.0-35.0) g/dL Plt Count 181 (150-450) 10^3/uL PT 16.5 H D (9.0-12.0) SEC INR 1.8 H (0.9-1.2) Sodium (136-145) mmol/L Potassium (3.5-5.1) mmol/L Chloride (98-107) mmol/L Carbon Dioxide (21-32) mmol/L Anion Gap (7-13) mEq/L BUN (7-18) mg/dL Creatinine (0.70-1.30) mg/dL Est Cr Clr Drug Dosing mL/min Estimated GFR (MDRD) Glucose (74-99) mg/dL POC Glucose 258 H (83-110) mg/dl Calcium (8.5-10.1) mg/dL 08/31/20 08/31/20 08/31/20 Range/Units 06:32 08:00 12:00 WBC (5.0-10.0) 10^3/uL RBC (4.6-6.2) 10^6/uL Hgb (14.0-18.0) g/dL Hct (40.0-54.0) % MCV (80-100) fL MCH (27.0-34.0) pg MCHC (33.0-35.0) g/dL Plt Count (150-450) 10^3/uL PT (9.0-12.0) SEC INR (0.9-1.2) Sodium 134 L (136-145) mmol/L Potassium 3.2 L (3.5-5.1) mmol/L Chloride 98 (98-107) mmol/L Carbon Dioxide 29 (21-32) mmol/L Anion Gap 10.2 (7-13) mEq/L BUN 31 H (7-18) mg/dL Creatinine 2.04 H (0.70-1.30) mg/dL Est Cr Clr Drug Dosing 32.23 mL/min Estimated GFR (MDRD) 32 Glucose 200 H (74-99) mg/dL POC Glucose 194 H 233 H (83-110) mg/dl Calcium 8.8 (8.5-10.1) mg/dL 08/31/20 Range/Units 16:56 WBC (5.0-10.0) 10^3/uL RBC (4.6-6.2) 10^6/uL Hgb (14.0-18.0) g/dL Hct (40.0-54.0) % MCV (80-100) fL MCH (27.0-34.0) pg MCHC (33.0-35.0) g/dL Plt Count (150-450) 10^3/uL PT (9.0-12.0) SEC INR (0.9-1.2) Sodium (136-145) mmol/L Potassium (3.5-5.1) mmol/L Chloride (98-107) mmol/L Carbon Dioxide (21-32) mmol/L Anion Gap (7-13) mEq/L BUN (7-18) mg/dL Creatinine (0.70-1.30) mg/dL Est Cr Clr Drug Dosing mL/min Estimated GFR (MDRD) Glucose (74-99) mg/dL POC Glucose 256 H (83-110) mg/dl Calcium (8.5-10.1) mg/dL Kraig Results Last 24 Hours: Microbiology 08/29/20 16:36 Aerobic Blood Culture - Preliminary Blood - Venous - Iv Start NO GROWTH AFTER 2 DAYS Anaerobic Blood Culture - Final 08/29/20 16:40 Aerobic Blood Culture - Preliminary Blood - Arm, Right NO GROWTH AFTER 2 DAYS Anaerobic Blood Culture - Final Med Orders - Current: Current Medications Acetaminophen (Tylenol) 650 mg PO Q4H PRN PRN Reason: Pain (Mild 1-3)/fever Last Admin: 08/30/20 21:53 Dose: 650 mg Documented by: Albuterol (Proventil Hfa) 0 gm INH Q6HR PRN PRN Reason: Dyspnea Last Admin: 08/30/20 05:16 Dose: 2 puff Documented by: Aspirin (Halfprin) 81 mg PO BEDTIME [facility] Last Admin: 08/30/20 21:39 Dose: 81 mg Documented by: Atorvastatin Calcium (Lipitor) 40 mg PO BEDTIME [facility] Last Admin: 08/30/20 21:39 Dose: 40 mg Documented by: Bupropion HCl (Wellbutrin Sr) 150 mg PO DAILY [facility] Last Admin: 08/31/20 08:55 Dose: 150 mg Documented by: Calcium Carbonate (Calcium Carbonate/Vitamin D 1250 Mg-200 Unit) 1 tab PO BID [facility] Last Admin: 08/31/20 08:55 Dose: 1 tab Documented by: Cholecalciferol (Vitamin D3) 50 mcg PO DAILY [facility] Last Admin: 08/31/20 08:54 Dose: 50 mcg Documented by: Dextrose/Water (Dextrose 50% In Water) 50 ml IV ASDIRECTED PRN PRN Reason: Hypoglycemia Docusate Sodium (Colace) 100 mg PO BID [facility] Last Admin: 08/31/20 13:05 Dose: 100 mg Documented by: Furosemide (Lasix) 40 mg IVPUSH 0600,1500 [facility] Last Admin: 08/31/20 15:15 Dose: 40 mg Documented by: Glucagon (Glucagen) 1 mg IM ASDIRECTED PRN PRN Reason: Hypoglycemia Piperacillin Sod/Tazobactam (Sod 2.25 gm/ Sodium Chloride) 50 mls @ 100 mls/hr IV Q6HR [facility] Last Infusion: 08/31/20 14:19 Dose: Infused Documented by: Insulin Glargine (Lantus) 10 unit SUBCUT BEDTIME [facility] Last Admin: 08/30/20 21:55 Dose: 10 units Documented by: Insulin Human Lispro (Humalog) 0 unit SUBCUT WITHMEALSANDBED [facility]; Protocol Last Admin: 08/31/20 13:03 Dose: 2 units Documented by: Latanoprost (Xalatan 0.005% Ophth Soln) 0 ml EYEBOTH BID [facility] Last Admin: 08/31/20 08:51 Dose: 1 drop Documented by: Memantine (Namenda) 10 mg PO BID [facility] Last Admin: 08/31/20 08:55 Dose: 10 mg Documented by: Metoprolol Succinate (Toprol Xl) 100 mg PO DAILY [facility] Last Admin: 08/31/20 13:05 Dose: 100 mg Documented by: Multivitamins (Thera) 1 each PO DAILY [facility] Last Admin: 08/31/20 08:54 Dose: 1 each Documented by: Nystatin (Nystop) 0 gm TOP BID [facility] Last Admin: 08/31/20 09:03 Dose: 1 applic Documented by: Senna/Docusate Sodium (Senna Plus) 2 tab PO BEDTIME [facility] Sodium Chloride (Saline Flush) 10 ml FLUSH ASDIRECTED PRN PRN Reason: IV Use Last Admin: 08/31/20 13:00 Dose: 10 ml Documented by: Tiotropium Carter (Spiriva Handihaler) 18 mcg INH DAILY [facility] Last Admin: 08/31/20 08:52 Dose: 18 mcg Documented by: Warfarin Sodium (Pharmacy To Dose - Warfarin) 1 dose .XX ASDIRECTED [facility] Discontinued Medications Bisacodyl (Dulcolax) 10 mg PO ONETIME ONE Stop: 08/31/20 11:01 Last Admin: 08/31/20 13:05 Dose: 10 mg Documented by: Digoxin (Lanoxin) 250 mcg IVPUSH Q6H [facility] Stop: 08/31/20 03:01 Last Admin: 08/31/20 02:39 Dose: 250 mcg Documented by: Furosemide (Lasix) 20 mg IVPUSH NOW ONE Stop: 08/30/20 08:31 Last Admin: 08/30/20 09:39 Dose: 20 mg Documented by: Furosemide (Lasix) 40 mg IVPUSH NOW ONE Stop: 08/30/20 14:47 Last Admin: 08/30/20 15:21 Dose: 40 mg Documented by: Piperacillin Sod/Tazobactam (Sod 3.375 gm/ Sodium Chloride) 100 mls @ 200 mls/hr IV ONETIME ONE Stop: 08/29/20 18:01 Last Admin: 08/29/20 17:39 Dose: 200 mls/hr Documented by: Sodium Chloride (Normal Saline) 1,000 mls @ 1,000 mls/hr IV .BOLUS [facility] Last Infusion: 08/30/20 00:55 Dose: Infused Documented by: Piperacillin Sod/Tazobactam (Sod 2.25 gm/ Sodium Chloride) 50 mls @ 100 mls/hr IV Q6HR [facility] Last Infusion: 08/30/20 00:55 Dose: Infused Documented by: Sodium Chloride (Normal Saline) 1,000 mls @ 500 mls/hr IV .BOLUS [facility] Sodium Chloride (Normal Saline) 1,000 mls @ 100 mls/hr IV ASDIRECTED [facility] Last Admin: 08/30/20 00:58 Dose: 100 mls/hr Documented by: Insulin Glargine (Lantus) 45 unit SUBCUT BEDTIME [facility] Last Admin: 08/30/20 21:59 Dose: Not Given Documented by: Metoprolol Tartrate (Lopressor) 2.5 mg IVPUSH ONETIME ONE Stop: 08/30/20 08:04 Last Admin: 08/30/20 09:50 Dose: 2.5 mg Documented by: Metoprolol Tartrate (Lopressor) 2.5 mg IVPUSH ONETIME ONE Stop: 08/30/20 19:17 Last Admin: 08/30/20 19:40 Dose: 2.5 mg Documented by: Metoprolol Tartrate (Lopressor) 5 mg IVPUSH Q6HR [facility] Last Admin: 08/31/20 05:13 Dose: 5 mg Documented by: Metoprolol Tartrate (Lopressor) 5 mg IVPUSH ONETIME ONE Stop: 08/31/20 14:31 Last Admin: 08/31/20 15:20 Dose: 5 mg Documented by: Midodrine (Midodrine) 5 mg PO ONETIME ONE Stop: 08/30/20 00:35 Last Admin: 08/30/20 01:02 Dose: 5 mg Documented by: Non-Formulary Medication (L.Acidoph,Paracasei, B.Lactis [Probiotic]) 1 each PO DAILY [facility] Last Admin: 08/31/20 12:39 Dose: Not Given Documented by: No Warfarin 0 each PO ONETIME ONE Stop: 08/30/20 14:01 Last Admin: 08/30/20 13:27 Dose: Not Given Documented by: Potassium Chloride (Klor-Con 10) 40 meq PO ONETIME ONE Stop: 08/31/20 07:28 Last Admin: 08/31/20 08:54 Dose: 40 meq Documented by: Warfarin Sodium (Coumadin) 10 mg PO ONETIME ONE Stop: 08/31/20 14:01 Last Admin: 08/31/20 15:14 Dose: 10 mg Documented by: - Exam Quality Assessment: Supplemental Oxygen General: Alert, Oriented (x2), Cooperative HEENT: Mucous Membr. Moist/[place] Neck: Supple Lungs: Wheezing (mild bibasilar wheezing and dec BS) Cardiovascular: Irregular Rhythm, Tachycardia GI/Abdominal Exam: Normal Bowel Sounds, Non-Tender, Distended (Male) Exam: Other (giron in place) Back Exam: Normal Inspection Extremities: Pedal Edema (1+, improved) - Patient Data Lab Results Last 24 hrs: Laboratory Results - last 24 hr 08/30/20 08/31/20 08/31/20 Range/Units 20:34 06:32 06:32 WBC 12.2 H (5.0-10.0) 10^3/uL RBC 4.05 L (4.6-6.2) 10^6/uL Hgb 12.4 L (14.0-18.0) g/dL Hct 37.0 L (40.0-54.0) % MCV 91.4 (80-100) fL MCH 30.6 (27.0-34.0) pg MCHC 33.5 (33.0-35.0) g/dL Plt Count 181 (150-450) 10^3/uL PT 16.5 H D (9.0-12.0) SEC INR 1.8 H (0.9-1.2) Sodium (136-145) mmol/L Potassium (3.5-5.1) mmol/L Chloride (98-107) mmol/L Carbon Dioxide (21-32) mmol/L Anion Gap (7-13) mEq/L BUN (7-18) mg/dL Creatinine (0.70-1.30) mg/dL Est Cr Clr Drug Dosing mL/min Estimated GFR (MDRD) Glucose (74-99) mg/dL POC Glucose 258 H (83-110) mg/dl Calcium (8.5-10.1) mg/dL 08/31/20 08/31/20 08/31/20 Range/Units 06:32 08:00 12:00 WBC (5.0-10.0) 10^3/uL RBC (4.6-6.2) 10^6/uL Hgb (14.0-18.0) g/dL Hct (40.0-54.0) % MCV (80-100) fL MCH (27.0-34.0) pg MCHC (33.0-35.0) g/dL Plt Count (150-450) 10^3/uL PT (9.0-12.0) SEC INR (0.9-1.2) Sodium 134 L (136-145) mmol/L Potassium 3.2 L (3.5-5.1) mmol/L Chloride 98 (98-107) mmol/L Carbon Dioxide 29 (21-32) mmol/L Anion Gap 10.2 (7-13) mEq/L BUN 31 H (7-18) mg/dL Creatinine 2.04 H (0.70-1.30) mg/dL Est Cr Clr Drug Dosing 32.23 mL/min Estimated GFR (MDRD) 32 Glucose 200 H (74-99) mg/dL POC Glucose 194 H 233 H (83-110) mg/dl Calcium 8.8 (8.5-10.1) mg/dL 08/31/20 Range/Units 16:56 WBC (5.0-10.0) 10^3/uL RBC (4.6-6.2) 10^6/uL Hgb (14.0-18.0) g/dL Hct (40.0-54.0) % MCV (80-100) fL MCH (27.0-34.0) pg MCHC (33.0-35.0) g/dL Plt Count (150-450) 10^3/uL PT (9.0-12.0) SEC INR (0.9-1.2) Sodium (136-145) mmol/L Potassium (3.5-5.1) mmol/L Chloride (98-107) mmol/L Carbon Dioxide (21-32) mmol/L Anion Gap (7-13) mEq/L BUN (7-18) mg/dL Creatinine (0.70-1.30) mg/dL Est Cr Clr Drug Dosing mL/min Estimated GFR (MDRD) Glucose (74-99) mg/dL POC Glucose 256 H (83-110) mg/dl Calcium (8.5-10.1) mg/dL Result Diagrams: 08/31/20 06:32 08/31/20 06:32 Kraig Results Last 24 hrs: Microbiology 08/29/20 16:36 Aerobic Blood Culture - Preliminary Blood - Venous - Iv Start NO GROWTH AFTER 2 DAYS Anaerobic Blood Culture - Final 08/29/20 16:40 Aerobic Blood Culture - Preliminary Blood - Arm, Right NO GROWTH AFTER 2 DAYS Anaerobic Blood Culture - Final Sepsis Event Note - Evaluation Sepsis Screening Result: Severe Sepsis Risk - Focused Exam Vital Signs: Vital Signs Temp Pulse Pulse Resp BP BP Pulse Ox 08/31/20 16:26 99.3 F 99 25 H 117/67 97 08/31/20 15:25 131/71 08/31/20 15:20 135 H 151/83 H 08/31/20 15:15 151/83 H 08/31/20 13:05 96 131/57 L 08/31/20 12:12 98.8 F 96 20 131/57 L 95 08/31/20 08:45 98.9 F 110 H 22 H 134/56 L 95 - Problem List Review Problem List Initiated/Reviewed/Updated: No - My Orders Last 24 Hours: My Active Orders 08/30/20 19:20 IS (RT) [RT Incentive Spirometry] [RC] ASDIRECTED 08/30/20 21:50 Insulin Glarg,Human.Rec.Analog [LantUS] 10 unit SUBCUT BEDTIME 08/31/20 06:00 Furosemide [Lasix] 40 mg IVPUSH 0600,1500 08/31/20 09:30 Docusate Sodium [Colace] 100 mg PO BID 08/31/20 09:45 Consult to Physical Therapy [PT Evaluation and Treatment] [CONS] Routine 08/31/20 11:15 Metoprolol Succinate [Toprol XL] 100 mg PO DAILY 08/31/20 21:00 Docusate Sodium/Sennosides [Senna Plus] 2 tab PO BEDTIME 09/01/20 06:00 INR,PT,PROTHROMBIN TIME [COAG] DAILY 09/02/20 06:00 INR,PT,PROTHROMBIN TIME [COAG] DAILY 09/03/20 06:00 INR,PT,PROTHROMBIN TIME [COAG] DAILY 09/04/20 06:00 INR,PT,PROTHROMBIN TIME [COAG] DAILY 09/05/20 06:00 INR,PT,PROTHROMBIN TIME [COAG] DAILY 09/06/20 06:00 INR,PT,PROTHROMBIN TIME [COAG] DAILY - Assessment Assessment:: #acute hypoxic respiratory failure 2/2 pneumonia and acute systolic CHF exacerbation - improving slowly - c/w diuresis and abx #acute systolic CHF - d/w pt's cardiology provider [employer] Marie Esposito - preliminary echo report w/ <20% EF and global LV hypokinesis and mild RV hypokinesis - it must be noted the echo was done at a time when pt HR was 130-140s - it is also known that pt's HR was uncontrolled as outpatient for some time now - the 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 mediated - unlikely to be ischemic since pt had a non obstructive cath only 1-2y ago - c/w lasix 40 mg IV BID today - hold off lasix in am given rising Cr #sepsis 2/2 pneumonia - WBC 19 > 12 - c/w zosyn #rapid atrial fibrillation - it has been difficult to control - s/p dig load last night - reacts well to IV lopressor - will restart his home toprol Xl today but add additional night dose #demand ischemia - small trop leak 0.1 - in setting of above #KAMERON on CKD3 - in setting of all of above and aggressive diuresis #DM2 - lantus cut to 10 - EBONI #delirium superimposed on mild cognitive impairment #prostate ca #HL PPX - on coumadin Full code - d/w
[2020-08-31] MEDS: Acetaminophen 325 MG Tab PO PRN (19:49)
[2020-08-31] MEDS: Aspirin 81 MG Tab.EC PO SCH (21:40)
[2020-08-31] MEDS: atorvaSTATin 20 MG Tab PO SCH (21:40)
[2020-08-31] MEDS: Metoprolol Succinate 50 MG Tab.ER PO SCH (21:41)
[2020-08-31] MEDS: Insulin Glarg,Human.Rec.Analog 100 Unit/ML SUBCUT SCH (21:48)
[2020-09-01] MEDS: Sodium Chloride 0.9% 10 ML Syringe FLUSH PRN ×6 (00:06→23:36)
[2020-09-01] MEDS: Piperacillin/Tazobactam 2.25 GM in Sodium Chloride 0.9% 50 ML IV SCH ×5 (00:06→23:39)
[2020-09-01] MEDS: Albuterol 6.7 GM Inhaler INH PRN (03:56)
[2020-09-01] MEDS: Furosemide 40 MG/4 ML VIAL IVPUSH SCH ×2 (06:41→14:00)
[2020-09-01 06:43] LABS: ANION GAP 15.7 mEq/L (7-13)
[2020-09-01] MEDS: Insulin Lispro 100 Units/ML 3 ML Vial SUBCUT SCH ×4 (08:52→20:50)
[2020-09-01] MEDS: Tiotropium Inhaler 18 MCG Inhalation Powder Cap Kit of 5 INH SCH (08:55)
[2020-09-01] MEDS: Multivitamins,Therapeutic Tab PO SCH (08:56)
[2020-09-01] MEDS: Cholecalciferol (Vitamin D3) 25 MCG Tab PO SCH (08:56)
[2020-09-01] MEDS: Calcium Carbonate/Vitamin D3 1250 MG-200 Unit Tab PO SCH ×2 (08:56→20:32)
[2020-09-01] MEDS: Docusate Sodium 100 MG Cap PO SCH ×2 (08:57→20:49)
[2020-09-01] MEDS ORDERED: diphenhydrAMINE 50 MG/ML SDV IVPUSH PRN (08:57)
[2020-09-01] MEDS: Metoprolol Succinate 50 MG Tab.ER PO SCH ×2 (08:57→20:33)
[2020-09-01] MEDS: buPROPion 150 MG Tab.SR PO SCH (08:58)
[2020-09-01] MEDS: Memantine 10 MG Tab PO SCH ×2 (08:58→20:33)
[2020-09-01] MEDS: Acetaminophen 325 MG Tab PO PRN (08:59)
--- NOTE | 2020-09-01 09:19 | CR ---
PROCEDURE INFORMATION: Exam: XR Chest Exam date and time: 09/01/2020 7:12 AM Age: 80 years old Clinical indication: Other: Chf; Prior surgery; Additional info: F/up chf TECHNIQUE: Imaging protocol: XR of the chest Views: 1 view. COMPARISON: CR Chest 1V Frontal 08/29/2020 4:30 PM FINDINGS: Tubes, catheters and devices: Images are degraded by motion. Pacemaker. Tubing projects over the upper abdomen Lungs: Shallow inspiration accentuates heart size and pulmonary vascularity. No focal consolidation. Pleural spaces: Unremarkable. No pleural effusion. No pneumothorax. Heart/Mediastinum: Unremarkable. No cardiomegaly. Bones/joints: Unremarkable. Other findings: No appreciable change since 08/29/2020. IMPRESSION: 1. No appreciable change from 08/29/2020 but the images are degraded by motion. 2. Shallow inspiration accentuates the heart size and pulmonary vascularity.
[2020-09-01] MEDS ORDERED: Magnesium Hydroxide 400 MG/5 ML Susp 30 ML Cup PO ONE ×2 (10:23→15:30)
[2020-09-01] MEDS ORDERED: Bisacodyl 10 MG Supp RECTAL ONE ×2 (10:26→12:45)
[2020-09-01] MEDS: Latanoprost 0.005% Ophth Soln 2.5 ML Bottle EYEBOTH SCH ×2 (11:02→20:35)
[2020-09-01] MEDS: Nystatin Topical Powder 30 GM Bottle TOP SCH ×2 (11:03→20:34)
--- NOTE | 2020-09-01 12:48 | PCM.PN ---
- General Info Date of Service: 09/01/20 Subjective Update: HR controlled overnight 80-100s. BP stable. Mental status less confused. Legs less swollen. Liberated from o2 in am - stable high 90s on room air when in bed . Note that pt desaturated profoundly yesterday w/ PT. d/w re fluid restriction - apparently she has been pushing pt to drink lots of water in past 2 days while we've been diuresing. Family meeting held with and son at bedside and daughter on the telephone. Explained pt's the current acute problems, treatments, prognosis. We discussed his advanced congestive heart failure c/b afib and CKD. All questions were answered. I re-enforced need for free water restriction. - Review of Systems General: Reports: No Symptoms HEENT: Reports: No Symptoms Pulmonary: Reports: Shortness of Breath Cardiovascular: Denies: Chest Pain Gastrointestinal: Reports: Constipation. Denies: Abdominal Pain Genitourinary: Denies: Frequency, Urgency Musculoskeletal: Reports: Other (weakness) Skin: Reports: No Symptoms Neurological: Reports: Confusion Psychiatric: Denies: Mood Lability - Patient Data Vitals - Most Recent: Last Vital Signs Temp 100.3 F 09/01/20 08:26 Pulse 71 09/01/20 08:57 Resp 20 09/01/20 08:26 BP 118/60 09/01/20 08:57 Pulse Ox 98 09/01/20 08:26 Weight - Most Recent: 261 lb 11.2 oz I&O - Last 24 Hours: Intake & Output 08/31/20 09/01/20 09/01/20 22:59 06:59 14:59 Intake Total 100 96 175 Output Total 1100 450 Balance -1000 -354 175 Lab Results Last 24 Hours: Laboratory Results - last 24 hr 08/31/20 08/31/20 09/01/20 Range/Units 16:56 20:45 06:15 WBC 11.6 H (5.0-10.0) 10^3/uL RBC 3.96 L (4.6-6.2) 10^6/uL Hgb 12.1 L (14.0-18.0) g/dL Hct 36.1 L (40.0-54.0) % MCV 91.2 (80-100) fL MCH 30.6 (27.0-34.0) pg MCHC 33.5 (33.0-35.0) g/dL Plt Count 221 (150-450) 10^3/uL PT (9.0-12.0) SEC INR (0.9-1.2) Sodium (136-145) mmol/L Potassium (3.5-5.1) mmol/L Chloride (98-107) mmol/L Carbon Dioxide (21-32) mmol/L Anion Gap (7-13) mEq/L BUN (7-18) mg/dL Creatinine (0.70-1.30) mg/dL Est Cr Clr Drug Dosing mL/min Estimated GFR (MDRD) Glucose (74-99) mg/dL POC Glucose 256 H 262 H (83-110) mg/dl Calcium (8.5-10.1) mg/dL B-Natriuretic Peptide (0-100) pg/ml Digoxin (0.9-2.0) ng/mL 09/01/20 09/01/20 09/01/20 Range/Units 06:15 06:15 06:15 WBC (5.0-10.0) 10^3/uL RBC (4.6-6.2) 10^6/uL Hgb (14.0-18.0) g/dL Hct (40.0-54.0) % MCV (80-100) fL MCH (27.0-34.0) pg MCHC (33.0-35.0) g/dL Plt Count (150-450) 10^3/uL PT 17.8 H (9.0-12.0) SEC INR 1.9 H (0.9-1.2) Sodium 137 (136-145) mmol/L Potassium 3.7 (3.5-5.1) mmol/L Chloride 99 (98-107) mmol/L Carbon Dioxide 26 (21-32) mmol/L Anion Gap 15.7 H (7-13) mEq/L BUN 37 H (7-18) mg/dL Creatinine 1.93 H (0.70-1.30) mg/dL Est Cr Clr Drug Dosing 34.06 mL/min Estimated GFR (MDRD) 34 Glucose 208 H (74-99) mg/dL POC Glucose (83-110) mg/dl Calcium 8.9 (8.5-10.1) mg/dL B-Natriuretic Peptide 999 H (0-100) pg/ml Digoxin 0.7 L (0.9-2.0) ng/mL 09/01/20 09/01/20 Range/Units 08:04 11:15 WBC (5.0-10.0) 10^3/uL RBC (4.6-6.2) 10^6/uL Hgb (14.0-18.0) g/dL Hct (40.0-54.0) % MCV (80-100) fL MCH (27.0-34.0) pg MCHC (33.0-35.0) g/dL Plt Count (150-450) 10^3/uL PT (9.0-12.0) SEC INR (0.9-1.2) Sodium (136-145) mmol/L Potassium (3.5-5.1) mmol/L Chloride (98-107) mmol/L Carbon Dioxide (21-32) mmol/L Anion Gap (7-13) mEq/L BUN (7-18) mg/dL Creatinine (0.70-1.30) mg/dL Est Cr Clr Drug Dosing mL/min Estimated GFR (MDRD) Glucose (74-99) mg/dL POC Glucose 221 H 276 H (83-110) mg/dl Calcium (8.5-10.1) mg/dL B-Natriuretic Peptide (0-100) pg/ml Digoxin (0.9-2.0) ng/mL [facility] Results Last 24 Hours: Microbiology 08/29/20 16:36 Aerobic Blood Culture - Preliminary Blood - Venous - Iv Start NO GROWTH AFTER 2 DAYS Anaerobic Blood Culture - Final 08/29/20 16:40 Aerobic Blood Culture - Preliminary Blood - Arm, Right NO GROWTH AFTER 2 DAYS Anaerobic Blood Culture - Final Med Orders - Current: Current Medications Acetaminophen (Tylenol) 650 mg PO Q4H PRN PRN Reason: Pain (Mild 1-3)/fever Last Admin: 09/01/20 08:59 Dose: 650 mg Documented by: Albuterol (Proventil Hfa) 0 gm INH Q6HR PRN PRN Reason: Dyspnea Last Admin: 09/01/20 03:56 Dose: 2 puff Documented by: Aspirin (Halfprin) 81 mg PO BEDTIME [facility] Last Admin: 08/31/20 21:40 Dose: 81 mg Documented by: Atorvastatin Calcium (Lipitor) 40 mg PO BEDTIME [facility] Last Admin: 08/31/20 21:40 Dose: 40 mg Documented by: Bupropion HCl (Wellbutrin Sr) 150 mg PO DAILY [facility] Last Admin: 09/01/20 08:58 Dose: 150 mg Documented by: Calcium Carbonate (Calcium Carbonate/Vitamin D 1250 Mg-200 Unit) 1 tab PO BID [facility] Last Admin: 09/01/20 08:56 Dose: 1 tab Documented by: Cholecalciferol (Vitamin D3) 50 mcg PO DAILY [facility] Last Admin: 09/01/20 08:56 Dose: 50 mcg Documented by: Dextrose/Water (Dextrose 50% In Water) 50 ml IV ASDIRECTED PRN PRN Reason: Hypoglycemia Docusate Sodium (Colace) 100 mg PO BID [facility] Last Admin: 09/01/20 08:57 Dose: 100 mg Documented by: Furosemide (Lasix) 60 mg IVPUSH 0600,1400 [facility] Glucagon (Glucagen) 1 mg IM ASDIRECTED PRN PRN Reason: Hypoglycemia Piperacillin Sod/Tazobactam (Sod 2.25 gm/ Sodium Chloride) 50 mls @ 100 mls/hr IV Q6HR [facility] Last Infusion: 09/01/20 06:33 Dose: Infused Documented by: Insulin Glargine (Lantus) 15 unit SUBCUT BEDTIME [facility] Insulin Human Lispro (Humalog) 0 unit SUBCUT WITHMEALSANDBED [facility]; Protocol Last Admin: 09/01/20 08:52 Dose: 2 units Documented by: Latanoprost (Xalatan 0.005% Ophth Soln) 0 ml EYEBOTH BID [facility] Last Admin: 09/01/20 11:02 Dose: 1 drop Documented by: Memantine (Namenda) 10 mg PO BID [facility] Last Admin: 09/01/20 08:58 Dose: 10 mg Documented by: Metoprolol Succinate (Toprol Xl) 100 mg PO BID [facility] Last Admin: 09/01/20 08:57 Dose: 100 mg Documented by: Multivitamins (Thera) 1 each PO DAILY [facility] Last Admin: 09/01/20 08:56 Dose: 1 each Documented by: Nystatin (Nystop) 0 gm TOP BID [facility] Last Admin: 09/01/20 11:03 Dose: 1 applic Documented by: Senna/Docusate Sodium (Senna Plus) 2 tab PO BEDTIME [facility] Last Admin: 08/31/20 21:41 Dose: 2 tab Documented by: Sodium Chloride (Saline Flush) 10 ml FLUSH ASDIRECTED PRN PRN Reason: IV Use Last Admin: 09/01/20 06:46 Dose: 10 ml Documented by: Tiotropium [place] (Spiriva Handihaler) 18 mcg INH DAILY [facility] Last Admin: 09/01/20 08:55 Dose: 18 mcg Documented by: Warfarin Sodium (Pharmacy To Dose - Warfarin) 1 dose .XX ASDIRECTED [facility] Warfarin Sodium (Coumadin) 10 mg PO ONETIME ONE Stop: 09/01/20 14:01 Discontinued Medications Bisacodyl (Dulcolax) 10 mg PO ONETIME ONE Stop: 08/31/20 11:01 Last Admin: 08/31/20 13:05 Dose: 10 mg Documented by: Bisacodyl (Dulcolax) 10 mg RECTAL ONETIME ONE Stop: 09/01/20 10:27 Digoxin (Lanoxin) 250 mcg IVPUSH Q6H [facility] Stop: 08/31/20 03:01 Last Admin: 08/31/20 02:39 Dose: 250 mcg Documented by: Diphenhydramine HCl (Benadryl) 25 mg IVPUSH Q4H PRN PRN Reason: Itching Furosemide (Lasix) 20 mg IVPUSH NOW ONE Stop: 08/30/20 08:31 Last Admin: 08/30/20 09:39 Dose: 20 mg Documented by: Furosemide (Lasix) 40 mg IVPUSH NOW ONE Stop: 08/30/20 14:47 Last Admin: 08/30/20 15:21 Dose: 40 mg Documented by: Furosemide (Lasix) 40 mg IVPUSH 0600,1500 [facility] Last Admin: 09/01/20 06:41 Dose: 40 mg Documented by: Piperacillin Sod/Tazobactam (Sod 3.375 gm/ Sodium Chloride) 100 mls @ 200 mls/hr IV ONETIME ONE Stop: 08/29/20 18:01 Last Admin: 08/29/20 17:39 Dose: 200 mls/hr Documented by: Sodium Chloride (Normal Saline) 1,000 mls @ 1,000 mls/hr IV .BOLUS [facility] Last Infusion: 08/30/20 00:55 Dose: Infused Documented by: Piperacillin Sod/Tazobactam (Sod 2.25 gm/ Sodium Chloride) 50 mls @ 100 mls/hr IV Q6HR [facility] Last Infusion: 08/30/20 00:55 Dose: Infused Documented by: Sodium Chloride (Normal Saline) 1,000 mls @ 500 mls/hr IV .BOLUS [facility] Sodium Chloride (Normal Saline) 1,000 mls @ 100 mls/hr IV ASDIRECTED [facility] Last Admin: 08/30/20 00:58 Dose: 100 mls/hr Documented by: Insulin Glargine (Lantus) 45 unit SUBCUT BEDTIME [facility] Last Admin: 08/30/20 21:59 Dose: Not Given Documented by: Insulin Glargine (Lantus) 10 unit SUBCUT BEDTIME [facility] Last Admin: 08/31/20 21:48 Dose: Not Given Documented by: Magnesium Hydroxide (Milk Of Magnesia) 30 ml PO ONETIME ONE Stop: 09/01/20 10:24 Metoprolol Succinate (Toprol Xl) 100 mg PO DAILY [facility] Last Admin: 08/31/20 13:05 Dose: 100 mg Documented by: Metoprolol Tartrate (Lopressor) 2.5 mg IVPUSH ONETIME ONE Stop: 08/30/20 08:04 Last Admin: 08/30/20 09:50 Dose: 2.5 mg Documented by: Metoprolol Tartrate (Lopressor) 2.5 mg IVPUSH ONETIME ONE Stop: 08/30/20 19:17 Last Admin: 08/30/20 19:40 Dose: 2.5 mg Documented by: Metoprolol Tartrate (Lopressor) 5 mg IVPUSH Q6HR [facility] Last Admin: 08/31/20 05:13 Dose: 5 mg Documented by: Metoprolol Tartrate (Lopressor) 5 mg IVPUSH ONETIME ONE Stop: 08/31/20 14:31 Last Admin: 08/31/20 15:20 Dose: 5 mg Documented by: Midodrine (Midodrine) 5 mg PO ONETIME ONE Stop: 08/30/20 00:35 Last Admin: 08/30/20 01:02 Dose: 5 mg Documented by: Non-Formulary Medication (L.Acidoph,Paracasei, B.Lactis [Probiotic]) 1 each PO DAILY [facility] Last Admin: 08/31/20 12:39 Dose: Not Given Documented by: No Warfarin 0 each PO ONETIME ONE Stop: 08/30/20 14:01 Last Admin: 08/30/20 13:27 Dose: Not Given Documented by: Potassium Chloride (Klor-Con 10) 40 meq PO ONETIME ONE Stop: 08/31/20 07:28 Last Admin: 08/31/20 08:54 Dose: 40 meq Documented by: Warfarin Sodium (Coumadin) 10 mg PO ONETIME ONE Stop: 08/31/20 14:01 Last Admin: 08/31/20 15:14 Dose: 10 mg Documented by: - Exam Quality Assessment: No: Supplemental Oxygen General: Alert, Cooperative HEENT: Pupils Equal Neck: Supple Lungs: Wheezing (mild) Cardiovascular: No Murmurs, Irregular Rhythm GI/Abdominal Exam: Normal Bowel Sounds, Soft, Non-Tender, Distended (Male) Exam: Other (giron in place, no discharge) Extremities: Pedal Edema (1+) Skin: Warm, Dry Neurological: No New Focal Deficit Psy/Mental Status: Normal Affect, Normal Mood - Patient Data Lab Results Last 24 hrs: Laboratory Results - last 24 hr 08/31/20 08/31/20 09/01/20 Range/Units 16:56 20:45 06:15 WBC 11.6 H (5.0-10.0) 10^3/uL RBC 3.96 L (4.6-6.2) 10^6/uL Hgb 12.1 L (14.0-18.0) g/dL Hct 36.1 L (40.0-54.0) % MCV 91.2 (80-100) fL MCH 30.6 (27.0-34.0) pg MCHC 33.5 (33.0-35.0) g/dL Plt Count 221 (150-450) 10^3/uL PT (9.0-12.0) SEC INR (0.9-1.2) Sodium (136-145) mmol/L Potassium (3.5-5.1) mmol/L Chloride (98-107) mmol/L Carbon Dioxide (21-32) mmol/L Anion Gap (7-13) mEq/L BUN (7-18) mg/dL Creatinine (0.70-1.30) mg/dL Est Cr Clr Drug Dosing mL/min Estimated GFR (MDRD) Glucose (74-99) mg/dL POC Glucose 256 H 262 H (83-110) mg/dl Calcium (8.5-10.1) mg/dL B-Natriuretic Peptide (0-100) pg/ml Digoxin (0.9-2.0) ng/mL 09/01/20 09/01/20 09/01/20 Range/Units 06:15 06:15 06:15 WBC (5.0-10.0) 10^3/uL RBC (4.6-6.2) 10^6/uL Hgb (14.0-18.0) g/dL Hct (40.0-54.0) % MCV (80-100) fL MCH (27.0-34.0) pg MCHC (33.0-35.0) g/dL Plt Count (150-450) 10^3/uL PT 17.8 H (9.0-12.0) SEC INR 1.9 H (0.9-1.2) Sodium 137 (136-145) mmol/L Potassium 3.7 (3.5-5.1) mmol/L Chloride 99 (98-107) mmol/L Carbon Dioxide 26 (21-32) mmol/L Anion Gap 15.7 H (7-13) mEq/L BUN 37 H (7-18) mg/dL Creatinine 1.93 H (0.70-1.30) mg/dL Est Cr Clr Drug Dosing 34.06 mL/min Estimated GFR (MDRD) 34 Glucose 208 H (74-99) mg/dL POC Glucose (83-110) mg/dl Calcium 8.9 (8.5-10.1) mg/dL B-Natriuretic Peptide 999 H (0-100) pg/ml Digoxin 0.7 L (0.9-2.0) ng/mL 09/01/20 09/01/20 Range/Units 08:04 11:15 WBC (5.0-10.0) 10^3/uL RBC (4.6-6.2) 10^6/uL Hgb (14.0-18.0) g/dL Hct (40.0-54.0) % MCV (80-100) fL MCH (27.0-34.0) pg MCHC (33.0-35.0) g/dL Plt Count (150-450) 10^3/uL PT (9.0-12.0) SEC INR (0.9-1.2) Sodium (136-145) mmol/L Potassium (3.5-5.1) mmol/L Chloride (98-107) mmol/L Carbon Dioxide (21-32) mmol/L Anion Gap (7-13) mEq/L BUN (7-18) mg/dL Creatinine (0.70-1.30) mg/dL Est Cr Clr Drug Dosing mL/min Estimated GFR (MDRD) Glucose (74-99) mg/dL POC Glucose 221 H 276 H (83-110) mg/dl Calcium (8.5-10.1) mg/dL B-Natriuretic Peptide (0-100) pg/ml Digoxin (0.9-2.0) ng/mL Result Diagrams: 09/01/20 06:15 09/01/20 06:15 [facility]ig Results Last 24 hrs: Microbiology 08/29/20 16:36 Aerobic Blood Culture - Preliminary Blood - Venous - Iv Start NO GROWTH AFTER 2 DAYS Anaerobic Blood Culture - Final 08/29/20 16:40 Aerobic Blood Culture - Preliminary Blood - Arm, Right NO GROWTH AFTER 2 DAYS Anaerobic Blood Culture - Final Sepsis Event Note - Evaluation Sepsis Screening Result: No Definite Risk - Focused Exam Vital Signs: Vital Signs Temp Pulse Pulse Resp BP BP Pulse Ox 09/01/20 08:57 71 118/60 09/01/20 08:26 100.3 F 71 20 118/60 98 09/01/20 04:04 99.2 F 60 20 114/72 99 - Problem List Review Problem List Initiated/Reviewed/Updated: No - My Orders Last 24 Hours: My Active Orders 08/31/20 21:00 Docusate Sodium/Sennosides [Senna Plus] 2 tab PO BEDTIME Metoprolol Succinate [Toprol XL] 100 mg PO BID 09/01/20 Breakfast Fluid Restriction [DIET] 09/01/20 14:00 Furosemide [Lasix] 60 mg IVPUSH 0600,1400 Warfarin [Coumadin] 10 mg PO ONETIME ONE 09/01/20 21:00 Insulin Glarg,Human.Rec.Analog [LantUS] 15 unit SUBCUT BEDTIME 09/02/20 05:11 BASIC METABOLIC PANEL,BMP [CHEM] AM 09/02/20 06:00 INR,PT,PROTHROMBIN TIME [COAG] DAILY 09/03/20 06:00 INR,PT,PROTHROMBIN TIME [COAG] DAILY 09/04/20 06:00 INR,PT,PROTHROMBIN TIME [COAG] DAILY 09/05/20 06:00 INR,PT,PROTHROMBIN TIME [COAG] DAILY 09/06/20 06:00 INR,PT,PROTHROMBIN TIME [COAG] DAILY - Assessment Assessment:: #acute hypoxic respiratory failure 2/2 pneumonia and acute systolic CHF exacerbation - improving slowly - c/w diuresis and abx #acute systolic CHF - echo w/ <20% EF and global LV hypokinesis and mild RV hypokinesis - it must be noted the echo was done at a time when pt HR was 130- 140s - it is also known that pt's HR was uncontrolled as outpatient for some time now - the 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 mediated - unlikely to be ischemic since pt had a non obstructive cath only 1-2y ago - now w/ more BP room for diuresis given stable BP and Cr - will increase lasix 40 >>> 60 IV BID - d/w pt's cardiology provider [employer] Marie Esposito again today in regards to need for life vest, repeat cath, advanced heart failure strategies - she will d/w her cardiology team at [facility] and we will decide if transfer needed - family updated #sepsis 2/2 pneumonia - WBC 19 > 11 - c/w zosyn #rapid atrial fibrillation - it has been difficult to control - s/p dig load 08/30 - now well controlled on Toprol 100 BID - c/w coumadin #demand ischemia - small trop leak 0.1 - in setting of above #KAMERON on CKD3 - in setting of all of above and aggressive diuresis - stable #DM2 - increase lantus 10 >>> 15 - EBONI #delirium superimposed on mild cognitive impairment #prostate ca #HL PPX - on coumadin Full code - d/w
[2020-09-01] MEDS ORDERED: Warfarin 5 MG Tab PO ONE (14:00)
[2020-09-01] MEDS: Aspirin 81 MG Tab.EC PO SCH (20:33)
[2020-09-01] MEDS: atorvaSTATin 20 MG Tab PO SCH (20:33)
[2020-09-01] MEDS ORDERED: Insulin Glarg,Human.Rec.Analog 100 Unit/ML SUBCUT SCH (21:00)
[2020-09-02] MEDS: Sodium Chloride 0.9% 10 ML Syringe FLUSH PRN ×7 (00:08→17:52)
[2020-09-02] MEDS: Albuterol 6.7 GM Inhaler INH PRN (00:19)
[2020-09-02] MEDS: Piperacillin/Tazobactam 2.25 GM in Sodium Chloride 0.9% 50 ML IV SCH ×3 (05:21→17:52)
[2020-09-02] MEDS: Furosemide 40 MG/4 ML VIAL IVPUSH SCH (05:58)
[2020-09-02 06:56] LABS: ANION GAP 15.1 mEq/L (7-13)
[2020-09-02] MEDS: Tiotropium Inhaler 18 MCG Inhalation Powder Cap Kit of 5 INH SCH (10:00)
[2020-09-02] MEDS: Nystatin Topical Powder 30 GM Bottle TOP SCH ×2 (10:02→20:28)
[2020-09-02] MEDS: Metoprolol Succinate 50 MG Tab.ER PO SCH ×2 (10:03→20:23)
[2020-09-02] MEDS: Multivitamins,Therapeutic Tab PO SCH (10:09)
[2020-09-02] MEDS: buPROPion 150 MG Tab.SR PO SCH (10:09)
[2020-09-02] MEDS: Memantine 10 MG Tab PO SCH ×2 (10:09→20:24)
[2020-09-02] MEDS: Calcium Carbonate/Vitamin D3 1250 MG-200 Unit Tab PO SCH ×2 (10:09→20:23)
[2020-09-02] MEDS: Docusate Sodium 100 MG Cap PO SCH ×2 (10:09→20:23)
[2020-09-02] MEDS: Acetaminophen 325 MG Tab PO PRN ×2 (10:10→14:20)
[2020-09-02] MEDS: Cholecalciferol (Vitamin D3) 25 MCG Tab PO SCH (10:10)
[2020-09-02] MEDS: Latanoprost 0.005% Ophth Soln 2.5 ML Bottle EYEBOTH SCH ×2 (10:11→20:28)
[2020-09-02] MEDS: Insulin Lispro 100 Units/ML 3 ML Vial SUBCUT SCH ×4 (10:14→20:33)
[2020-09-02] MEDS ORDERED: Warfarin 2.5 MG Tab PO ONE (14:00)
[2020-09-02] MEDS: Furosemide 100 MG/10 ML SDV IVPUSH SCH (14:12)
--- NOTE | 2020-09-02 16:15 | PCM.PN ---
- General Info Date of Service: 09/02/20 Subjective Update: Delirious overnight. Pulling at lines and devices. Wheezing worse today. HR controlled. Lopez was discontinued yesterday afternoon. He had a BM. Met w/ daughter Lupe and . We discussed possible afib ablation/PPM, [employer] and [facility] discussions w/ cardiology team there. We discussed code status in depth. We agreed to try increased dose of lasix for diuresis and possibly transfer tomorrow if not improving. They felt strongly that pt should have DNR/DNI order however they DO WANT defibrillation/cardioversion in case of Vfib/Vtach but no chest compressions. The pt clearly has no decision making capacity right now. 20 min spent on this family meeting. - Patient Data Vitals - Most Recent: Last Vital Signs Temp 100.2 F 09/02/20 12:00 Pulse 93 09/02/20 12:00 Resp 22 H 09/02/20 12:00 BP 138/71 09/02/20 12:00 Pulse Ox 98 09/02/20 12:00 Weight - Most Recent: 259 lb 9.6 oz I&O - Last 24 Hours: Intake & Output 09/02/20 09/02/20 09/02/20 06:59 14:59 22:59 Intake Total 92 468 Balance 92 468 Lab Results Last 24 Hours: Laboratory Results - last 24 hr 09/01/20 09/01/20 09/02/20 Range/Units 16:59 20:36 06:30 PT (9.0-12.0) SEC INR (0.9-1.2) Sodium 144 (136-145) mmol/L Potassium 4.1 (3.5-5.1) mmol/L Chloride 101 (98-107) mmol/L Carbon Dioxide 32 (21-32) mmol/L Anion Gap 15.1 H (7-13) mEq/L BUN 40 H (7-18) mg/dL Creatinine 2.03 H (0.70-1.30) mg/dL Est Cr Clr Drug Dosing 32.39 mL/min Estimated GFR (MDRD) 32 Glucose 261 H (74-99) mg/dL POC Glucose 285 H 257 H (83-110) mg/dl Calcium 9.2 (8.5-10.1) mg/dL 09/02/20 09/02/2009/02/21 Range/Units 06:31 07:34 11:31 PT 31.3 H D (9.0-12.0) SEC INR 3.3 H (0.9-1.2) Sodium (136-145) mmol/L Potassium (3.5-5.1) mmol/L Chloride (98-107) mmol/L Carbon Dioxide (21-32) mmol/L Anion Gap (7-13) mEq/L BUN (7-18) mg/dL Creatinine (0.70-1.30) mg/dL Est Cr Clr Drug Dosing mL/min Estimated GFR (MDRD) Glucose (74-99) mg/dL POC Glucose 247 H 292 H (83-110) mg/dl Calcium (8.5-10.1) mg/dL Kraig Results Last 24 Hours: Microbiology 08/29/20 16:36 Aerobic Blood Culture - Preliminary Blood - Venous - Iv Start NO GROWTH AFTER 3 DAYS Anaerobic Blood Culture - Final 08/29/20 16:40 Aerobic Blood Culture - Preliminary Blood - Arm, Right NO GROWTH AFTER 3 DAYS Anaerobic Blood Culture - Final Med Orders - Current: Current Medications Acetaminophen (Tylenol) 650 mg PO Q4H PRN PRN Reason: Pain (Mild 1-3)/fever Last Admin: 09/02/20 14:20 Dose: 650 mg Documented by: Albuterol (Proventil Hfa) 0 gm INH Q6HR PRN PRN Reason: Dyspnea Last Admin: 09/02/20 00:19 Dose: 2 puff Documented by: Aspirin (Halfprin) 81 mg PO BEDTIME [facility] Last Admin: 09/01/20 20:33 Dose: 81 mg Documented by: Atorvastatin Calcium (Lipitor) 40 mg PO BEDTIME [facility] Last Admin: 09/01/20 20:33 Dose: 40 mg Documented by: Bupropion HCl (Wellbutrin Sr) 150 mg PO DAILY [facility] Last Admin: 09/02/20 10:09 Dose: 150 mg Documented by: Calcium Carbonate (Calcium Carbonate/Vitamin D 1250 Mg-200 Unit) 1 tab PO BID [facility] Last Admin: 09/02/20 10:09 Dose: 1 tab Documented by: Cholecalciferol (Vitamin D3) 50 mcg PO DAILY [facility] Last Admin: 09/02/20 10:10 Dose: 50 mcg Documented by: Dextrose/Water (Dextrose 50% In Water) 50 ml IV ASDIRECTED PRN PRN Reason: Hypoglycemia Docusate Sodium (Colace) 100 mg PO BID [facility] Last Admin: 09/02/20 10:09 Dose: 100 mg Documented by: Furosemide (Lasix) 80 mg IVPUSH 0600,1400 [facility] Last Admin: 09/02/20 14:12 Dose: 80 mg Documented by: Glucagon (Glucagen) 1 mg IM ASDIRECTED PRN PRN Reason: Hypoglycemia Piperacillin Sod/Tazobactam (Sod 2.25 gm/ Sodium Chloride) 50 mls @ 100 mls/hr IV Q6HR [facility] Last Infusion: 09/02/20 13:26 Dose: Infused Documented by: Insulin Glargine (Lantus) 25 unit SUBCUT BEDTIME [facility] Insulin Human Lispro (Humalog) 0 unit SUBCUT WITHMEALSANDBED [facility]; Protocol Last Admin: 09/02/20 12:46 Dose: 3 units Documented by: Latanoprost (Xalatan 0.005% Ophth Soln) 0 ml EYEBOTH BID [facility] Last Admin: 09/02/20 10:11 Dose: 1 drop Documented by: Memantine (Namenda) 10 mg PO BID [facility] Last Admin: 09/02/20 10:09 Dose: 10 mg Documented by: Metoprolol Succinate (Toprol Xl) 100 mg PO BID [facility] Last Admin: 09/02/20 10:03 Dose: 100 mg Documented by: Multivitamins (Thera) 1 each PO DAILY [facility] Last Admin: 09/02/20 10:09 Dose: 1 each Documented by: Nystatin (Nystop) 0 gm TOP BID [facility] Last Admin: 09/02/20 10:02 Dose: 1 applic Documented by: Senna/Docusate Sodium (Senna Plus) 2 tab PO BEDTIME [facility] Last Admin: 09/01/20 20:33 Dose: 2 tab Documented by: Sodium Chloride (Saline Flush) 10 ml FLUSH ASDIRECTED PRN PRN Reason: IV Use Last Admin: 09/02/20 14:12 Dose: 10 ml Documented by: Tiotropium [place] (Spiriva Handihaler) 18 mcg INH DAILY [facility] Last Admin: 09/02/20 10:00 Dose: 18 mcg Documented by: Warfarin Sodium (Pharmacy To Dose - Warfarin) 1 dose .XX ASDIRECTED [facility] Discontinued Medications Bisacodyl (Dulcolax) 10 mg PO ONETIME ONE Stop: 08/31/20 11:01 Last Admin: 08/31/20 13:05 Dose: 10 mg Documented by: Bisacodyl (Dulcolax) 10 mg RECTAL ONETIME ONE Stop: 09/01/20 10:27 Last Admin: 09/01/20 13:04 Dose: Not Given Documented by: Bisacodyl (Dulcolax) 10 mg RECTAL ONETIME ONE Stop: 09/01/20 12:46 Last Admin: 09/01/20 13:59 Dose: 10 mg Documented by: Digoxin (Lanoxin) 250 mcg IVPUSH Q6H SUDHA Stop: 08/31/20 03:01 Last Admin: 08/31/20 02:39 Dose: 250 mcg Documented by: Diphenhydramine HCl (Benadryl) 25 mg IVPUSH Q4H PRN PRN Reason: Itching Furosemide (Lasix) 20 mg IVPUSH NOW ONE Stop: 08/30/20 08:31 Last Admin: 08/30/20 09:39 Dose: 20 mg Documented by: Furosemide (Lasix) 40 mg IVPUSH NOW ONE Stop: 08/30/20 14:47 Last Admin: 08/30/20 15:21 Dose: 40 mg Documented by: Furosemide (Lasix) 40 mg IVPUSH 0600,1500 [facility] Last Admin: 09/01/20 06:41 Dose: 40 mg Documented by: Furosemide (Lasix) 60 mg IVPUSH 0600,1400 [facility] Last Admin: 09/02/20 05:58 Dose: 60 mg Documented by: Piperacillin Sod/Tazobactam (Sod 3.375 gm/ Sodium Chloride) 100 mls @ 200 mls/hr IV ONETIME ONE Stop: 08/29/20 18:01 Last Admin: 08/29/20 17:39 Dose: 200 mls/hr Documented by: Sodium Chloride (Normal Saline) 1,000 mls @ 1,000 mls/hr IV .BOLUS [facility] Last Infusion: 08/30/20 00:55 Dose: Infused Documented by: Piperacillin Sod/Tazobactam (Sod 2.25 gm/ Sodium Chloride) 50 mls @ 100 mls/hr IV Q6HR [facility] Last Infusion: 08/30/20 00:55 Dose: Infused Documented by: Sodium Chloride (Normal Saline) 1,000 mls @ 500 mls/hr IV .BOLUS [facility] Sodium Chloride (Normal Saline) 1,000 mls @ 100 mls/hr IV ASDIRECTED [facility] Last Admin: 08/30/20 00:58 Dose: 100 mls/hr Documented by: Insulin Glargine (Lantus) 45 unit SUBCUT BEDTIME [facility] Last Admin: 08/30/20 21:59 Dose: Not Given Documented by: Insulin Glargine (Lantus) 10 unit SUBCUT BEDTIME [facility] Last Admin: 08/31/20 21:48 Dose: Not Given Documented by: Insulin Glargine (Lantus) 15 unit SUBCUT BEDTIME [facility] Last Admin: 09/01/20 20:53 Dose: Not Given Documented by: Magnesium Hydroxide (Milk Of Magnesia) 30 ml PO ONETIME ONE Stop: 09/01/20 15:31 Last Admin: 09/01/20 16:30 Dose: 30 ml Documented by: Metoprolol Succinate (Toprol Xl) 100 mg PO DAILY [facility] Last Admin: 08/31/20 13:05 Dose: 100 mg Documented by: Metoprolol Tartrate (Lopressor) 2.5 mg IVPUSH ONETIME ONE Stop: 08/30/20 08:04 Last Admin: 08/30/20 09:50 Dose: 2.5 mg Documented by: Metoprolol Tartrate (Lopressor) 2.5 mg IVPUSH ONETIME ONE Stop: 08/30/20 19:17 Last Admin: 08/30/20 19:40 Dose: 2.5 mg Documented by: Metoprolol Tartrate (Lopressor) 5 mg IVPUSH Q6HR [facility] Last Admin: 08/31/20 05:13 Dose: 5 mg Documented by: Metoprolol Tartrate (Lopressor) 5 mg IVPUSH ONETIME ONE Stop: 08/31/20 14:31 Last Admin: 08/31/20 15:20 Dose: 5 mg Documented by: Midodrine (Midodrine) 5 mg PO ONETIME ONE Stop: 08/30/20 00:35 Last Admin: 08/30/20 01:02 Dose: 5 mg Documented by: Non-Formulary Medication (L.Acidoph,Paracasei, B.Lactis [Probiotic]) 1 each PO DAILY [facility] Last Admin: 08/31/20 12:39 Dose: Not Given Documented by: No Warfarin 0 each PO ONETIME ONE Stop: 08/30/20 14:01 Last Admin: 08/30/20 13:27 Dose: Not Given Documented by: Potassium Chloride (Klor-Con 10) 40 meq PO ONETIME ONE Stop: 08/31/20 07:28 Last Admin: 08/31/20 08:54 Dose: 40 meq Documented by: Warfarin Sodium (Coumadin) 10 mg PO ONETIME ONE Stop: 08/31/20 14:01 Last Admin: 08/31/20 15:14 Dose: 10 mg Documented by: Warfarin Sodium (Coumadin) 10 mg PO ONETIME ONE Stop: 09/01/20 14:01 Last Admin: 09/01/20 14:00 Dose: 10 mg Documented by: Warfarin Sodium (Coumadin) 2.5 mg PO ONETIME ONE Stop: 09/02/20 14:01 Last Admin: 09/02/20 14:20 Dose: 2.5 mg Documented by: - Exam General: Alert, Cooperative HEENT: Pupils Equal Neck: Supple Lungs: Wheezing (diffuse) Cardiovascular: Irregular Rhythm GI/Abdominal Exam: Normal Bowel Sounds, Non-Tender, Distended Back Exam: Normal Inspection Extremities: Pedal Edema (1+ pitting) Skin: Other (dime sized stage 3 decubitus on coccyx) Neurological: No New Focal Deficit Psy/Mental Status: Other (confused) - Patient Data Lab Results Last 24 hrs: Laboratory Results - last 24 hr 09/01/20 09/01/20 09/02/20 Range/Units 16:59 20:36 06:30 PT (9.0-12.0) SEC INR (0.9-1.2) Sodium 144 (136-145) mmol/L Potassium 4.1 (3.5-5.1) mmol/L Chloride 101 (98-107) mmol/L Carbon Dioxide 32 (21-32) mmol/L Anion Gap 15.1 H (7-13) mEq/L BUN 40 H (7-18) mg/dL Creatinine 2.03 H (0.70-1.30) mg/dL Est Cr Clr Drug Dosing 32.39 mL/min Estimated GFR (MDRD) 32 Glucose 261 H (74-99) mg/dL POC Glucose 285 H 257 H (83-110) mg/dl Calcium 9.2 (8.5-10.1) mg/dL 09/02/20 09/02/20 09/02/20 Range/Units 06:31 07:34 11:31 PT 31.3 H D (9.0-12.0) SEC INR 3.3 H (0.9-1.2) Sodium (136-145) mmol/L Potassium (3.5-5.1) mmol/L Chloride (98-107) mmol/L Carbon Dioxide (21-32) mmol/L Anion Gap (7-13) mEq/L BUN (7-18) mg/dL Creatinine (0.70-1.30) mg/dL Est Cr Clr Drug Dosing mL/min Estimated GFR (MDRD) Glucose (74-99) mg/dL POC Glucose 247 H 292 H (83-110) mg/dl Calcium (8.5-10.1) mg/dL Result Diagrams: 09/01/20 06:15 09/02/20 06:30 Kraig Results Last 24 hrs: Microbiology 08/29/20 16:36 Aerobic Blood Culture - Preliminary Blood - Venous - Iv Start NO GROWTH AFTER 3 DAYS Anaerobic Blood Culture - Final 08/29/20 16:40 Aerobic Blood Culture - Preliminary Blood - Arm, Right NO GROWTH AFTER 3 DAYS Anaerobic Blood Culture - Final Sepsis Event Note - Evaluation Sepsis Screening Result: Severe Sepsis Risk - Focused Exam Vital Signs: Vital Signs Temp Pulse Pulse Resp BP BP Pulse Ox 09/02/20 12:00 100.2 F 93 22 H 138/71 98 09/02/20 10:03 103 H 154/43 H 09/02/20 08:15 100.2 F 103 H 24 H 141/70 H 98 - Problem List Review Problem List Initiated/Reviewed/Updated: No - My Orders Last 24 Hours: My Active Orders 09/01/20 20:03 DC Lopez Catheter [Urinary Catheter Removal] [RC] PER UNIT ROUTINE 09/02/20 14:00 Furosemide [Lasix] 80 mg IVPUSH 0600,1400 09/02/20 14:15 Resuscitation Status Routine 09/02/20 21:00 Insulin Glarg,Human.Rec.Analog [LantUS] 25 unit SUBCUT BEDTIME 09/03/20 06:00 INR,PT,PROTHROMBIN TIME [COAG] DAILY 09/04/20 06:00 INR,PT,PROTHROMBIN TIME [COAG] DAILY 09/05/20 06:00 INR,PT,PROTHROMBIN TIME [COAG] DAILY 09/06/20 06:00 INR,PT,PROTHROMBIN TIME [COAG] DAILY - Assessment Assessment:: #acute hypoxic respiratory failure 2/2 pneumonia and acute systolic CHF exacerbation - he has stopped improving - diffuse wheezing today - will trial a dose of steroid - repeat CXR in am - c/w lasix and zosyn #acute systolic CHF - echo w/ <20% EF and global LV hypokinesis and mild RV hypokinesis - it must be noted the echo was done at a time when pt HR was 130- 140s - it is also known that pt's HR was uncontrolled as outpatient for some time now - the 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 mediated - unlikely to be ischemic since pt had a non obstructive cath only 1-2y ago - increase lasix to 80 mg IV BID - [facility] - if no improvement by tomorrow will transfer for advanced heart failure therapies - family aware #sepsis 2/2 pneumonia - WBC 19 > 11 - c/w zosyn #rapid atrial fibrillation - it has been difficult to control - s/p dig load 08/30 - now well controlled on Toprol 100 BID - hold coumadin for high INR #demand ischemia - small trop leak 0.1 - in setting of above #KAMERON on CKD3 - in setting of all of above and aggressive diuresis - stable #DM2 - increase lantus 15 >>> 22 - EBONI #delirium superimposed on mild cognitive impairment #prostate ca #HL PPX - on coumadin DNR/DNI - but defibrillate/cardiovert ONLY - no chest compressions
[2020-09-02] MEDS: atorvaSTATin 20 MG Tab PO SCH (20:23)
[2020-09-02] MEDS: Aspirin 81 MG Tab.EC PO SCH (20:24)
[2020-09-02] MEDS ORDERED: Insulin Glarg,Human.Rec.Analog 100 Unit/ML SUBCUT SCH (21:00)
[2020-09-03] MEDS: Sodium Chloride 0.9% 10 ML Syringe FLUSH PRN ×4 (00:03→07:03)
[2020-09-03] MEDS: Piperacillin/Tazobactam 2.25 GM in Sodium Chloride 0.9% 50 ML IV SCH ×3 (00:04→15:50)
[2020-09-03] MEDS: Acetaminophen 325 MG Tab PO PRN (01:21)
[2020-09-03] MEDS: Albuterol 6.7 GM Inhaler INH PRN ×2 (03:44→09:52)
[2020-09-03] MEDS: Furosemide 100 MG/10 ML SDV IVPUSH SCH ×2 (06:16→15:50)
[2020-09-03 06:27] LABS: ANION GAP 15.6 mEq/L (7-13)
[2020-09-03] MEDS: Nystatin Topical Powder 30 GM Bottle TOP SCH (08:02)
--- NOTE | 2020-09-03 08:22 | CR ---
PROCEDURE INFORMATION: Exam: XR Chest Exam date and time: 09/03/2020 7:46 AM Age: 80 years old Clinical indication: Other: Chf; Additional info: F/up chf TECHNIQUE: Imaging protocol: XR of the chest Views: 1 view. COMPARISON: 1. CR Chest 1V Frontal 09/01/2020 7:12 AM 2. CR Chest 1V Frontal 08/29/2020 4:30 PM FINDINGS: Tubes, catheters and devices: A pacemaker with a single lead is in unchanged position. Lungs: Lung volumes are low. The central pulmonary vasculature is hazy and indistinct. Crowding is likely in part due to the lung low lung volumes. Pulmonary vascular congestion is favored. Pleural spaces: There is a possible small left pleural effusion. Heart/Mediastinum: The cardiomediastinal silhouette is prominent, but likely accentuated by low lung volumes. Bones/joints: Unremarkable for age. IMPRESSION: 1. Probable pulmonary vascular congestion, although evaluation limited by low lung volumes. 2. Possible small left pleural effusion.
[2020-09-03] MEDS: Latanoprost 0.005% Ophth Soln 2.5 ML Bottle EYEBOTH SCH (09:53)
[2020-09-03] MEDS: Docusate Sodium 100 MG Cap PO SCH (09:53)
[2020-09-03] MEDS: Memantine 10 MG Tab PO SCH (09:53)
[2020-09-03] MEDS: Cholecalciferol (Vitamin D3) 25 MCG Tab PO SCH (09:53)
[2020-09-03] MEDS: Multivitamins,Therapeutic Tab PO SCH (09:53)
[2020-09-03] MEDS: buPROPion 150 MG Tab.SR PO SCH (09:54)
[2020-09-03] MEDS: Calcium Carbonate/Vitamin D3 1250 MG-200 Unit Tab PO SCH (09:54)
[2020-09-03] MEDS: Tiotropium Inhaler 18 MCG Inhalation Powder Cap Kit of 5 INH SCH (10:00)
[2020-09-03] MEDS: Metoprolol Succinate 50 MG Tab.ER PO SCH (10:01)
--- NOTE | 2020-09-03 10:03 | PCM.HP ---
H&P History of Present Illness - General Date of Service: 09/03/20 Admit Problem/Dx: Admission Diagnosis/Problem Admission Diagnosis/Problem Pneumonia - History of Present Illness Initial Comments - Free Text/Narative: 80M w/ pmh HT, DM2, non obstructive CAD, afib on coumadin, CKD, HL, diastolic CHF, prostate ca, mild cognitive impairment p/w generalized weakness and dyspnea. ER evaluation found WBC 19, CXR w/ bibasilar fluid vs infiltrates, rapid afib, BNP 1300, 2L o2 requirement, low grade temp. He was COVID19 and flu negative. He was given zosyn and lasix IV. His WBC rapidly decreased to 11. Blood cultures remained negative and pt remained afebrile. His afib was initially difficult to control given borderline BPs but eventually responded to digoxin load and Toprol XL 100 mg in BID dosing. Subsequently digoxin was not continued. This was c/b mild demand ischemia w/ max trop 0.1. Echo demons trated severe global systolic dysfunction w/ EF <25%. This is compared to prior 50-55% done appx 1.5 years ago. He also had a non obstructive cath at that time. Aggressive diuresis was attempted w/ increasing doses of lasix up to 80 mg IV BID but while no longer in respiratory distress the pt remains far from euvolemia. Case was d/w his cardiology provider at [facility] TATIANA Esposito NP and Dr Rea. Pt will be transferred for advanced heart failure therapies, consideration for OPERATOR HELPER or AICD. Pt was accepted for transfer by Dr Melton hospitalist service. - Related Data Allergies/Adverse Reactions: Allergies Allergy/AdvReac Type Severity Reaction Status Date / Time donepezil [From Aricept] AdvReac Mild Diarrhea Verified 08/29/20 18:07 Home Medications: Home Meds Acetaminophen 325 - 650 mg PO ASDIRECTED PRN 06/17/18 [History] Albuterol Sulfate [Proair Hfa] 2 puff INH Q6HR PRN 06/17/18 [History] Aspirin [Adult Low Dose Aspirin EC] 81 mg PO BEDTIME 06/17/18 [History] Calcium Citrate/Vitamin D3 [Calcium Citrate - Vit D Caplet] 1 tab PO BID 06/17/18 [History] Furosemide 20 mg PO DAILY 06/17/18 [History] Glucosam/Chondroit/C/Manganese [Cosamin Ds Capsule] 1 tab PO BID 06/17/18 [History] Insulin Glarg,Human.Rec.Analog [Lantus Solostar] 45 units INJECT BEDTIME 06/17/18 [History] Latanoprost/Pf [Latanoprost 0.005% Eye Drop] 1 drop EYEBOTH BID 06/17/18 [History] Memantine [Namenda] 10 mg PO BID 06/17/18 [History] Multivitamin [Multi-Day Vitamins] 1 tab PO DAILY 06/17/18 [History] Tiotropium [Spiriva HandiHaler] 1 cap INH DAILY 06/17/18 [History] Warfarin Sodium [Jantoven] 7.5 mg PO ASDIRECTED 06/17/18 [History] Warfarin Sodium [Jantoven] 10 mg PO ASDIRECTED 06/17/18 [History] atorvaSTATin [Lipitor] 40 mg PO BEDTIME 06/17/18 [History] buPROPion [Wellbutrin SR] 150 mg PO DAILY 06/17/18 [History] metFORMIN HCl [Glucophage] 1,000 mg PO BID 06/17/18 [History] Cholecalciferol (Vitamin D3) [Vitamin D] 2,000 unit PO DAILY 08/29/20 [History] L.acidoph,Paracasei, B.lactis [Probiotic] 1 each PO DAILY 08/29/20 [History] Metoprolol Succinate [Toprol XL 100mg] 100 mg PO DAILY 08/29/20 [History] Valsartan/Hydrochlorothiazide [Diovan Hct 160-12.5 mg Tab] 1 each PO DAILY 08/29/20 [History] glipiZIDE [Glucotrol] 5 mg PO BIDAC 08/29/20 [History] Past Medical History HEENT History: Reports: Allergic Rhinitis, Impaired Vision Cardiovascular History: Reports: Afib, High Cholesterol, Hypertension, Pacemaker, Stents Other Cardiovascular History: x3 stents Respiratory History: Reports: Bronchitis, Recurrent, SOB Genitourinary History: Reports: Prostate Disorder Musculoskeletal History: Reports: Fracture Other Musculoskeletal History: lef lower arm fracture antoinette inplace Neurological History: Reports: Concussion, Head Trauma, Other (See Below) Other Neuro History: plate in head left side 1970 Psychiatric History: Reports: Depression Endocrine/Metabolic History: Reports: Diabetes, Type II, Obesity/BMI 30+ Hematologic History: Reports: None Immunologic History: Reports: None Oncologic (Cancer) History: Reports: Prostate Dermatologic History: Reports: Decubitus Ulcer - Infectious Disease History Infectious Disease History: Reports: Chicken Pox - Past Surgical History HEENT Surgical History: Reports: None Cardiovascular Surgical History: Reports: Pacer Other Cardiovascular Surgeries/Procedures: 2014 heart pacer GI Surgical History: Reports: Colonoscopy Male Surgical History: Reports: Prostatectomy Other Male Surgeries/Procedures: prostate cancer 2008 Neurological Surgical History: Reports: None Musculoskeletal Surgical History: Reports: Other (See Below) Other Musculoskeletal Surgeries/Procedures:: lef lower arm fracture antoinette inplace Oncologic Surgical History: Reports: None Social & Family History - Family History Family Medical History: No Pertinent Family History - Tobacco Use Tobacco Use Status *Q: Former Tobacco User Used Tobacco, but Quit: Yes Month/Year Tobacco Last Used: 07/1969 - Caffeine Use Caffeine Use: Reports: Coffee Other Caffeine Use: 2 cups - Recreational Drug Use Recreational Drug Use: No Exam - Vital Signs Vital Signs: Last Vital Signs Temp 100.5 F 09/03/20 03:46 Pulse 54 L 09/03/20 03:46 Resp 24 H 09/03/20 03:46 BP 145/61 H 09/03/20 03:46 Pulse Ox 95 09/03/20 03:46 Weight: 255 lb 6.4 oz - Patient Data Lab Results Last 24 hrs: Laboratory Results - last 24 hr 09/02/20 09/02/20 09/02/20 Range/Units 11:31 17:11 20:30 PT (9.0-12.0) SEC INR (0.9-1.2) Sodium (136-145) mmol/L Potassium (3.5-5.1) mmol/L Chloride (98-107) mmol/L Carbon Dioxide (21-32) mmol/L Anion Gap (7-13) mEq/L BUN (7-18) mg/dL Creatinine (0.70-1.30) mg/dL Est Cr Clr Drug Dosing mL/min Estimated GFR (MDRD) Glucose (74-99) mg/dL POC Glucose 292 H 301 H 351 H (83-110) mg/dl Calcium (8.5-10.1) mg/dL Phosphorus (2.6-4.7) mg/dL Magnesium (1.8-2.4) mg/dL 09/02/20 09/03/20 09/03/20 Range/Units 20:30 05:50 05:50 PT 42.4 H D (9.0-12.0) SEC INR 4.5 H (0.9-1.2) Sodium 146 H (136-145) mmol/L Potassium 3.6 (3.5-5.1) mmol/L Chloride 104 (98-107) mmol/L Carbon Dioxide 30 (21-32) mmol/L Anion Gap 15.6 H (7-13) mEq/L BUN 46 H (7-18) mg/dL Creatinine 2.12 H (0.70-1.30) mg/dL Est Cr Clr Drug Dosing 31.01 mL/min Estimated GFR (MDRD) 30 Glucose 298 H (74-99) mg/dL POC Glucose 351 H (83-110) mg/dl Calcium 9.5 (8.5-10.1) mg/dL Phosphorus 3.7 (2.6-4.7) mg/dL Magnesium 2.3 (1.8-2.4) mg/dL 09/03/20 Range/Units 08:22 PT (9.0-12.0) SEC INR (0.9-1.2) Sodium (136-145) mmol/L Potassium (3.5-5.1) mmol/L Chloride (98-107) mmol/L Carbon Dioxide (21-32) mmol/L Anion Gap (7-13) mEq/L BUN (7-18) mg/dL Creatinine (0.70-1.30) mg/dL Est Cr Clr Drug Dosing mL/min Estimated GFR (MDRD) Glucose (74-99) mg/dL POC Glucose 320 H (83-110) mg/dl Calcium (8.5-10.1) mg/dL Phosphorus (2.6-4.7) mg/dL Magnesium (1.8-2.4) mg/dL Result Diagrams: 09/01/20 06:15 09/03/20 05:50 Kraig Results Last 24 hrs: Microbiology 08/29/20 16:36 Aerobic Blood Culture - Preliminary Blood - Venous - Iv Start NO GROWTH AFTER 4 DAYS Anaerobic Blood Culture - Final 08/29/20 16:40 Aerobic Blood Culture - Preliminary Blood - Arm, Right NO GROWTH AFTER 4 DAYS Anaerobic Blood Culture - Final Orders Last 24hrs: Active Orders 24 hr Category Date Time Status INR,PT,PROTHROMBIN TIME [COAG] DAILY Lab 09/04/20 06:00 Ordered INR,PT,PROTHROMBIN TIME [COAG] DAILY Lab 09/05/20 06:00 Ordered INR,PT,PROTHROMBIN TIME [COAG] DAILY Lab 09/06/20 06:00 Ordered Furosemide [Lasix] Med 09/02/20 14:00 Active 80 mg IVPUSH 0600,1400 Insulin Glarg,Human.Rec.Analog [LantUS] Med 09/02/20 21:00 Active 25 unit SUBCUT BEDTIME Resuscitation Status Routine Resus Stat 09/02/20 14:15 Ordered Medication Orders Acetaminophen (Tylenol) 650 mg PO Q4H PRN PRN Reason: Pain (Mild 1-3)/fever Last Admin: 09/03/20 01:21 Dose: 650 mg Documented by: Admin: 09/02/20 14:20 Dose: 650 mg Documented by: Admin: 09/02/20 10:10 Dose: 650 mg Documented by: Admin: 09/01/20 08:59 Dose: 650 mg Documented by: Admin: 08/31/20 19:49 Dose: 650 mg Documented by: Admin: 08/30/20 21:53 Dose: 650 mg Documented by: Admin: 08/30/20 09:51 Dose: 650 mg Documented by: ALLAN Albuterol (Proventil Hfa) 0 gm INH Q6HR PRN PRN Reason: Dyspnea Last Admin: 09/03/20 03:44 Dose: 2 puff Documented by: Admin: 09/02/20 00:19 Dose: 2 puff Documented by: Admin: 09/01/20 03:56 Dose: 2 puff Documented by: Admin: 08/30/20 05:16 Dose: 2 puff Documented by: RUSLAN Aspirin (Halfprin) 81 mg PO BEDTIME SUDHA Last Admin: 09/02/20 20:24 Dose: 81 mg Documented by: Admin: 09/01/20 20:33 Dose: 81 mg Documented by: Admin: 08/31/20 21:40 Dose: 81 mg Documented by: Admin: 08/30/20 21:39 Dose: 81 mg Documented by: Admin: 08/29/20 22:30 Dose: 81 mg Documented by: RUSLAN Atorvastatin Calcium (Lipitor) 40 mg PO BEDTIME [facility] Admin: 09/02/20 20:23 Dose: 40 mg Documented by: Admin: 09/01/20 20:33 Dose: 40 mg Documented by: Admin: 08/31/20 21:40 Dose: 40 mg Documented by: Admin: 08/30/20 21:39 Dose: 40 mg Documented by: Admin: 08/29/20 22:30 Dose: 40 mg Documented by: RUSLAN Bupropion HCl (Wellbutrin Sr) 150 mg PO DAILY [facility] Admin: 09/02/20 10:09 Dose: 150 mg Documented by: Admin: 09/01/20 08:58 Dose: 150 mg Documented by: Admin: 08/31/20 08:55 Dose: 150 mg Documented by: Admin: 08/30/20 09:45 Dose: 150 mg Documented by: ALLAN Calcium Carbonate (Calcium Carbonate/Vitamin D 1250 Mg-200 Unit) 1 tab PO BID [facility] Admin: 09/02/20 20:23 Dose: 1 tab Documented by: Admin: 09/02/20 10:09 Dose: 1 tab Documented by: Admin: 09/01/20 20:32 Dose: 1 tab Documented by: Admin: 09/01/20 08:56 Dose: 1 tab Documented by: Admin: 08/31/20 21:40 Dose: 1 tab Documented by: Admin: 08/31/20 08:55 Dose: 1 tab Documented by: Admin: 08/30/20 21:39 Dose: 1 tab Documented by: Admin: 08/30/20 09:45 Dose: 1 tab Documented by: Admin: 08/29/20 22:30 Dose: 1 tab Documented by: RUSLAN Cholecalciferol (Vitamin D3) 50 mcg PO DAILY [facility] Admin: 09/02/20 10:10 Dose: 50 mcg Documented by: Admin: 09/01/20 08:56 Dose: 50 mcg Documented by: Admin: 08/31/20 08:54 Dose: 50 mcg Documented by: Admin: 08/30/20 09:45 Dose: 50 mcg Documented by: ALLAN Dextrose/Water (Dextrose 50% In Water) 50 ml IV ASDIRECTED PRN PRN Reason: Hypoglycemia Docusate Sodium (Colace) 100 mg PO BID [facility] Last Admin: 09/02/20 20:23 Dose: 100 mg Documented by: Admin: 09/02/20 10:09 Dose: 100 mg Documented by: Admin: 09/01/20 20:49 Dose: 100 mg Documented by: Admin: 09/01/20 08:57 Dose: 100 mg Documented by: Admin: 08/31/20 21:40 Dose: 100 mg Documented by: Admin: 08/31/20 13:05 Dose: 100 mg Documented by: ALLAN Furosemide (Lasix) 80 mg IVPUSH 0600,1400 [facility] Last Admin: 09/03/20 06:16 Dose: 80 mg Documented by: Admin: 09/02/20 14:12 Dose: 80 mg Documented by: ELEAZAR Glucagon (Glucagen) 1 mg IM ASDIRECTED PRN PRN Reason: Hypoglycemia Piperacillin Sod/Tazobactam (Sod 2.25 gm/ Sodium Chloride) 50 mls @ 100 mls/hr IV Q6HR [facility] Infusion: 09/03/20 07:02 Dose: 100 mls/hr Documented by: Admin: 09/03/20 06:27 Dose: 100 mls/hr Documented by: Infusion: 09/03/20 00:34 Dose: 100 mls/hr Documented by: Admin: 09/03/20 00:04 Dose: 100 mls/hr Documented by: Infusion: 09/02/20 18:30 Dose: 100 mls/hr Documented by: Admin: 09/02/20 17:52 Dose: 100 mls/hr Documented by: Infusion: 09/02/20 13:26 Dose: 100 mls/hr Documented by: Admin: 09/02/20 12:54 Dose: 100 mls/hr Documented by: Infusion: 09/02/20 05:57 Dose: 100 mls/hr Documented by: Admin: 09/02/20 05:21 Dose: 100 mls/hr Documented by: Infusion: 09/02/20 00:09 Dose: 100 mls/hr Documented by: Admin: 09/01/20 23:39 Dose: 100 mls/hr Documented by: Infusion: 09/01/20 17:49 Dose: 100 mls/hr Documented by: Admin: 09/01/20 17:19 Dose: 100 mls/hr Documented by: Infusion: 09/01/20 13:20 Dose: 100 mls/hr Documented by: Admin: 09/01/20 12:50 Dose: 100 mls/hr Documented by: Infusion: 09/01/20 06:33 Dose: 100 mls/hr Documented by: Admin: 09/01/20 05:56 Dose: 100 mls/hr Documented by: Infusion: 09/01/20 00:38 Dose: 100 mls/hr Documented by: Admin: 09/01/20 00:06 Dose: 100 mls/hr Documented by: Infusion: 08/31/20 18:09 Dose: 100 mls/hr Documented by: Admin: 08/31/20 17:39 Dose: 100 mls/hr Documented by: Infusion: 08/31/20 14:19 Dose: 100 mls/hr Documented by: Admin: 08/31/20 12:58 Dose: 100 mls/hr Documented by: Infusion: 08/31/20 06:09 Dose: 100 mls/hr Documented by: Admin: 08/31/20 05:30 Dose: 100 mls/hr Documented by: Infusion: 08/31/20 00:29 Dose: 100 mls/hr Documented by: Admin: 08/30/20 23:38 Dose: 100 mls/hr Documented by: Infusion: 08/30/20 19:36 Dose: 100 mls/hr Documented by: Admin: 08/30/20 18:36 Dose: 100 mls/hr Documented by: Infusion: 08/30/20 13:35 Dose: 100 mls/hr Documented by: Admin: 08/30/20 12:33 Dose: 100 mls/hr Documented by: Infusion: 08/30/20 05:58 Dose: 100 mls/hr Documented by: Admin: 08/30/20 05:19 Dose: 100 mls/hr Documented by: RUSLAN Insulin Glargine (Lantus) 25 unit SUBCUT BEDTIME [facility]UD[facility] Last Admin: 09/02/20 20:35 Dose: Not Given Documented by: YARIEL Insulin Human Lispro (Humalog) 0 unit SUBCUT WITHMEALSANDBED [facility]; Protocol Last Admin: 09/02/20 20:33 Dose: 5 units Documented by: Admin: 09/02/20 17:49 Dose: 4 units Documented by: Admin: 09/02/20 12:46 Dose: 3 units Documented by: Admin: 09/02/20 10:14 Dose: 2 units Documented by: Admin: 09/01/20 20:50 Dose: 3 units Documented by: Admin: 09/01/20 17:17 Dose: 3 units Documented by: Admin: 09/01/20 12:40 Dose: 3 units Documented by: Admin: 09/01/20 08:52 Dose: 2 units Documented by: Admin: 08/31/20 21:33 Dose: 3 units Documented by: Admin: 08/31/20 17:38 Dose: 3 units Documented by: Admin: 08/31/20 13:03 Dose: 2 units Documented by: Admin: 08/31/20 08:58 Dose: 1 units Documented by: Admin: 08/30/20 21:56 Dose: 3 units Documented by: Admin: 08/30/20 18:38 Dose: 2 units Documented by: Admin: 08/30/20 11:50 Dose: 2 units Documented by: Admin: 08/30/20 09:35 Dose: 1 units Documented by: Admin: 08/29/20 22:28 Dose: 3 units Documented by: RUSLAN Latanoprost (Xalatan 0.005% Ophth Soln) 0 ml EYEBOTH BID [facility] Admin: 09/02/20 20:28 Dose: 1 drop Documented by: Admin: 09/02/20 10:11 Dose: 1 drop Documented by: Admin: 09/01/20 20:35 Dose: 1 drop Documented by: Admin: 09/01/20 11:02 Dose: 1 drop Documented by: Admin: 08/31/20 21:38 Dose: 1 drop Documented by: Admin: 08/31/20 08:51 Dose: 1 drop Documented by: Admin: 08/30/20 21:36 Dose: 1 drop Documented by: Admin: 08/30/20 09:37 Dose: 1 drop Documented by: Admin: 08/29/20 22:26 Dose: 1 drop Documented by: RUSLAN Memantine (Namenda) 10 mg PO BID [facility] Admin: 09/02/20 20:24 Dose: 10 mg Documented by: Admin: 09/02/20 10:09 Dose: 10 mg Documented by: Admin: 09/01/20 20:33 Dose: 10 mg Documented by: Admin: 09/01/20 08:58 Dose: 10 mg Documented by: Admin: 08/31/20 21:40 Dose: 10 mg Documented by: Admin: 08/31/20 08:55 Dose: 10 mg Documented by: Admin: 08/30/20 21:39 Dose: 10 mg Documented by: Admin: 08/30/20 09:45 Dose: 10 mg Documented by: Admin: 08/29/20 22:30 Dose: 10 mg Documented by: RUSLAN Metoprolol Succinate (Toprol Xl) 100 mg PO BID [facility] Admin: 09/02/20 20:23 Dose: 100 mg Documented by: Admin: 09/02/20 10:03 Dose: 100 mg Documented by: Admin: 09/01/20 20:33 Dose: 100 mg Documented by: Admin: 09/01/20 08:57 Dose: 100 mg Documented by: Admin: 08/31/20 21:41 Dose: 100 mg Documented by: MANNY Multivitamins (Thera) 1 each PO DAILY [facility] Last Admin: 09/02/20 10:09 Dose: 1 each Documented by: Admin: 09/01/20 08:56 Dose: 1 each Documented by: Admin: 08/31/20 08:54 Dose: 1 each Documented by: Admin: 08/30/20 09:45 Dose: 1 each Documented by: ALLAN Nystatin (Nystop) 0 gm TOP BID [facility] Last Admin: 09/02/20 20:28 Dose: 1 applic Documented by: Admin: 09/02/20 10:02 Dose: 1 applic Documented by: Admin: 09/01/20 20:34 Dose: 1 applic Documented by: Admin: 09/01/20 11:03 Dose: 1 applic Documented by: Admin: 08/31/20 21:37 Dose: 1 applic Documented by: Admin: 08/31/20 09:03 Dose: 1 applic Documented by: Admin: 08/30/20 21:35 Dose: 1 applic Documented by: Admin: 08/30/20 09:37 Dose: 1 applic Documented by: Admin: 08/29/20 22:30 Dose: 1 applic Documented by: RUSLAN Senna/Docusate Sodium (Senna Plus) 2 tab PO BEDTIME [facility] Last Admin: 09/02/20 20:24 Dose: 2 tab Documented by: Admin: 09/01/20 20:33 Dose: 2 tab Documented by: Admin: 08/31/20 21:41 Dose: 2 tab Documented by: MANNY Sodium Chloride (Saline Flush) 10 ml FLUSH ASDIRECTED PRN PRN Reason: IV Use Last Admin: 09/03/20 07:03 Dose: 10 ml Documented by: Admin: 09/03/20 06:26 Dose: 10 ml Documented by: Admin: 09/03/20 06:15 Dose: 10 ml Documented by: Admin: 09/03/20 00:03 Dose: 10 ml Documented by: Admin: 09/02/20 17:52 Dose: 10 ml Documented by: Admin: 09/02/20 14:12 Dose: 10 ml Documented by: Admin: 09/02/20 12:52 Dose: 10 ml Documented by: Admin: 09/02/20 06:06 Dose: 10 ml Documented by: Admin: 09/02/20 05:58 Dose: 10 ml Documented by: Admin: 09/02/20 05:20 Dose: 10 ml Documented by: Admin: 09/02/20 00:08 Dose: 10 ml Documented by: Admin: 09/01/20 23:36 Dose: 10 ml Documented by: Admin: 09/01/20 06:46 Dose: 10 ml Documented by: Admin: 09/01/20 06:41 Dose: 10 ml Documented by: Admin: 09/01/20 05:55 Dose: 10 ml Documented by: Admin: 09/01/20 00:40 Dose: 10 ml Documented by: Admin: 09/01/20 00:06 Dose: 10 ml Documented by: Admin: 08/31/20 13:00 Dose: 10 ml Documented by: Admin: 08/31/20 09:01 Dose: 10 ml Documented by: Admin: 08/31/20 05:28 Dose: 10 ml Documented by: Admin: 08/31/20 02:40 Dose: 10 ml Documented by: Admin: 08/30/20 23:38 Dose: 10 ml Documented by: Admin: 08/30/20 21:25 Dose: 10 ml Documented by: Admin: 08/30/20 15:23 Dose: 10 ml Documented by: Admin: 08/30/20 12:33 Dose: 10 ml Documented by: Admin: 08/30/20 09:40 Dose: 10 ml Documented by: Admin: 08/30/20 00:57 Dose: 10 ml Documented by: RUSLAN Tiotropium [place] (Spiriva Handihaler) 18 mcg INH DAILY [facility] Admin: 09/02/20 10:00 Dose: 18 mcg Documented by: Admin: 09/01/20 08:55 Dose: 18 mcg Documented by: Admin: 08/31/20 08:52 Dose: 18 mcg Documented by: Admin: 08/30/20 09:46 Dose: 18 mcg Documented by: ALLAN Assessment/Plan Comment:: Sepsis Bilateral pneumonia Lactic acidosis Tachycardia of 120s, tachypnea in the low 20s, leukocytosis, lactic acidosis, chest x-ray with pulmonary opacities. Blood and sputum cultures pending Start patient on vancomycin and Zosyn. Likely de-escalate antibiotics with improvement tomorrow. Oxygen supplementation as needed Give 1 L IV fluid Trend lactic acid Acute on chronic diastolic CHF BNP elevated at 1030 Hold diuretics for now due to sepsis. Will likely restart diuretics tomorrow if blood pressure remains stable. Strict I's and O's and daily weights Hypertension Hold antihypertensives for now Type 2 diabetes mellitus Resume home insulin regimen Sliding scale insulin with hypoglycemia protocol CKD Renal function appears to be at baseline Chronic atrial fibrillation Status post pacemaker Chronic anticoagulation Hold beta-shanda for now Resume home anticoagulation per pharmacy Hyperlipidemia Resume home statin therapy Prostate cancer Urinary incontinence Resume home tamsulosin Mild cognitive impairment Chronic. Likely has undiagnosed dementia. Generalized weakness PT/OT DVT prophylaxis: On Coumadin CODE STATUS: Full code
[2020-09-03] MEDS: Insulin Lispro 100 Units/ML 3 ML Vial SUBCUT SCH ×2 (10:07→15:47)
--- NOTE | 2020-09-03 10:09 | PCM.DCSUM1 ---
Discharge Summary - Hospital Course Free Text/Narrative:: 80M w/ pmh HT, DM2, non obstructive CAD, afib on coumadin, CKD, HL, diastolic CHF, prostate ca, mild cognitive impairment p/w generalized weakness and dyspnea. ER evaluation found WBC 19, CXR w/ bibasilar fluid vs infiltrates, rapid afib, BNP 1300, 2L o2 requirement, low grade temp. He was COVID19 and flu negative. He was given zosyn and lasix IV. His WBC rapidly decreased to 11. Blood cultures remained negative and pt remained afebrile. His afib was initially difficult to control given borderline BPs but eventually responded to digoxin load and Toprol XL 100 mg in BID dosing. Subsequently digoxin was not continued. This was c/b mild demand ischemia w/ max trop 0.1. Echo demonstrated severe global systolic dysfunction w/ EF <25%. This is compared to prior 50-55% done appx 1.5 years ago. He also had a non obstructive cath at that time. Aggressive diuresis was attempted w/ increasing doses of lasix up to 80 mg IV BID but while no longer in respiratory distress the pt remains far from euvolemia. Case was d/w his cardiology provider at [facility]placed by [facility] Marie Esposito NP and Dr Rea. Pt will be transferred for advanced heart failure therapies, consideration for PROPERTY CLAIM REP or AICD. Pt was accepted for transfer by Dr Melton hospitalist service. Please note that based on a family meeting on 09/02 w/ pt's daughter Lupe and the pt has a DNR/DNI order. That being said it is the wish of the family that pt receive defibrillation/cardioversion in event of in-hospital VT/Vfib and that this order not preclude AICD placement if deemed otherwise indicated. They do not wish chest compressions. Diagnosis: Stroke: No - Discharge Data Discharge Date: 09/03/20 Discharge Disposition: DC/Tfer to Acute Hospital 02 Condition: Poor - Referral to Home Health Primary Care Physician: PCP None - Patient Summary/Data Consults: Consultations 08/31/20 09:45 Consult to Physical Therapy [PT Evaluation and Treatment] [CONS] Routine - Patient Instructions Diet: Low Sodium Fluid Restriction: 1500 mL - Discharge Plan *PRESCRIPTION DRUG MONITORING PROGRAM REVIEWED*: Not Applicable *COPY OF PRESCRIPTION DRUG MONITORING REPORT IN PATIENT FRANK: Not Applicable Home Medications: Home Meds Acetaminophen 325 - 650 mg PO ASDIRECTED PRN 06/17/18 [History] Albuterol Sulfate [Proair Hfa] 2 puff INH Q6HR PRN 06/17/18 [History] Aspirin [Adult Low Dose Aspirin EC] 81 mg PO BEDTIME 06/17/18 [History] Calcium Citrate/Vitamin D3 [Calcium Citrate - Vit D Caplet] 1 tab PO BID 06/17/18 [History] Furosemide 20 mg PO DAILY 06/17/18 [History] Glucosam/Chondroit/C/Manganese [Cosamin Ds Capsule] 1 tab PO BID 06/17/18 [History] Insulin Glarg,Human.Rec.Analog [Lantus Solostar] 45 units INJECT BEDTIME 06/17/18 [History] Latanoprost/Pf [Latanoprost 0.005% Eye Drop] 1 drop EYEBOTH BID 06/17/18 [History] Memantine [Namenda] 10 mg PO BID 06/17/18 [History] Multivitamin [Multi-Day Vitamins] 1 tab PO DAILY 06/17/18 [History] Tiotropium [Spiriva HandiHaler] 1 cap INH DAILY 06/17/18 [History] Warfarin Sodium [Jantoven] 7.5 mg PO ASDIRECTED 06/17/18 [History] Warfarin Sodium [Jantoven] 10 mg PO ASDIRECTED 06/17/18 [History] atorvaSTATin [Lipitor] 40 mg PO BEDTIME 06/17/18 [History] buPROPion [Wellbutrin SR] 150 mg PO DAILY 06/17/18 [History] metFORMIN HCl [Glucophage] 1,000 mg PO BID 06/17/18 [History] Cholecalciferol (Vitamin D3) [Vitamin D] 2,000 unit PO DAILY 08/29/20 [History] L.acidoph,Paracasei, B.lactis [Probiotic] 1 each PO DAILY 08/29/20 [History] Metoprolol Succinate [Toprol XL 100mg] 100 mg PO DAILY 08/29/20 [History] Valsartan/Hydrochlorothiazide [Diovan Hct 160-12.5 mg Tab] 1 each PO DAILY 08/29/20 [History] glipiZIDE [Glucotrol] 5 mg PO BIDAC 08/29/20 [History] - Discharge Summary/Plan Comment DC Time >30 min.: Yes (35 min) - General Info Date of Service: 09/03/20 - Patient Data Vitals - Most Recent: Last Vital Signs Temp 100.5 F 09/03/20 03:46 Pulse 54 L 09/03/20 03:46 Resp 24 H 09/03/20 03:46 BP 145/61 H 09/03/20 03:46 Pulse Ox 95 09/03/20 03:46 Weight - Most Recent: 255 lb 6.4 oz I&O - Last 24 hours: Intake & Output 09/02/20 09/03/20 09/03/20 22:59 06:59 14:59 Intake Total 512 147 52 Balance 512 147 52 Lab Results - Last 24 hrs: Laboratory Results - last 24 hr 09/02/20 09/02/20 09/02/20 Range/Units 11:31 17:11 20:30 PT (9.0-12.0) SEC INR (0.9-1.2) Sodium (136-145) mmol/L Potassium (3.5-5.1) mmol/L Chloride (98-107) mmol/L Carbon Dioxide (21-32) mmol/L Anion Gap (7-13) mEq/L BUN (7-18) mg/dL Creatinine (0.70-1.30) mg/dL Est Cr Clr Drug Dosing mL/min Estimated GFR (MDRD) Glucose (74-99) mg/dL POC Glucose 292 H 301 H 351 H (83-110) mg/dl Calcium (8.5-10.1) mg/dL Phosphorus (2.6-4.7) mg/dL Magnesium (1.8-2.4) mg/dL 09/02/20 09/03/20 09/03/20 Range/Units 20:30 05:50 05:50 PT 42.4 H D (9.0-12.0) SEC INR 4.5 H (0.9-1.2) Sodium 146 H (136-145) mmol/L Potassium 3.6 (3.5-5.1) mmol/L Chloride 104 (98-107) mmol/L Carbon Dioxide 30 (21-32) mmol/L Anion Gap 15.6 H (7-13) mEq/L BUN 46 H (7-18) mg/dL Creatinine 2.12 H (0.70-1.30) mg/dL Est Cr Clr Drug Dosing 31.01 mL/min Estimated GFR (MDRD) 30 Glucose 298 H (74-99) mg/dL POC Glucose 351 H (83-110) mg/dl Calcium 9.5 (8.5-10.1) mg/dL Phosphorus 3.7 (2.6-4.7) mg/dL Magnesium 2.3 (1.8-2.4) mg/dL 09/03/20 Range/Units 08:22 PT (9.0-12.0) SEC INR (0.9-1.2) Sodium (136-145) mmol/L Potassium (3.5-5.1) mmol/L Chloride (98-107) mmol/L Carbon Dioxide (21-32) mmol/L Anion Gap (7-13) mEq/L BUN (7-18) mg/dL Creatinine (0.70-1.30) mg/dL Est Cr Clr Drug Dosing mL/min Estimated GFR (MDRD) Glucose (74-99) mg/dL POC Glucose 320 H (83-110) mg/dl Calcium (8.5-10.1) mg/dL Phosphorus (2.6-4.7) mg/dL Magnesium (1.8-2.4) mg/dL DOLORES Results - Last 24 hrs: Microbiology 08/29/20 16:36 Aerobic Blood Culture - Preliminary Blood - Venous - Iv Start NO GROWTH AFTER 4 DAYS Anaerobic Blood Culture - Final 08/29/20 16:40 Aerobic Blood Culture - Preliminary Blood - Arm, Right NO GROWTH AFTER 4 DAYS Anaerobic Blood Culture - Final Med Orders - Current: Current Medications Acetaminophen (Tylenol) 650 mg PO Q4H PRN PRN Reason: Pain (Mild 1-3)/fever Last Admin: 09/03/20 01:21 Dose: 650 mg Documented by: Albuterol (Proventil Hfa) 0 gm INH Q6HR PRN PRN Reason: Dyspnea Last Admin: 09/03/20 03:44 Dose: 2 puff Documented by: Aspirin (Halfprin) 81 mg PO BEDTIME [facility] Last Admin: 09/02/20 20:24 Dose: 81 mg Documented by: Atorvastatin Calcium (Lipitor) 40 mg PO BEDTIME [facility] Last Admin: 09/02/20 20:23 Dose: 40 mg Documented by: Bupropion HCl (Wellbutrin Sr) 150 mg PO DAILY [facility] Last Admin: 09/02/20 10:09 Dose: 150 mg Documented by: Calcium Carbonate (Calcium Carbonate/Vitamin D 1250 Mg-200 Unit) 1 tab PO BID [facility] Last Admin: 09/02/20 20:23 Dose: 1 tab Documented by: Cholecalciferol (Vitamin D3) 50 mcg PO DAILY [facility] Last Admin: 09/02/20 10:10 Dose: 50 mcg Documented by: Dextrose/Water (Dextrose 50% In Water) 50 ml IV ASDIRECTED PRN PRN Reason: Hypoglycemia Docusate Sodium (Colace) 100 mg PO BID [facility] Last Admin: 09/02/20 20:23 Dose: 100 mg Documented by: Furosemide (Lasix) 80 mg IVPUSH 0600,1400 [facility] Last Admin: 09/03/20 06:16 Dose: 80 mg Documented by: Glucagon (Glucagen) 1 mg IM ASDIRECTED PRN PRN Reason: Hypoglycemia Piperacillin Sod/Tazobactam (Sod 2.25 gm/ Sodium Chloride) 50 mls @ 100 mls/hr IV Q6HR [facility] Last Infusion: 09/03/20 07:02 Dose: Infused Documented by: Insulin Glargine (Lantus) 25 unit SUBCUT BEDTIME [facility] Last Admin: 09/02/20 20:35 Dose: Not Given Documented by: Insulin Human Lispro (Humalog) 0 unit SUBCUT WITHMEALSANDBED [facility]; Protocol Last Admin: 09/02/20 20:33 Dose: 5 units Documented by: Latanoprost (Xalatan 0.005% Ophth Soln) 0 ml EYEBOTH BID [facility] Last Admin: 09/02/20 20:28 Dose: 1 drop Documented by: Memantine (Namenda) 10 mg PO BID [facility] Last Admin: 09/02/20 20:24 Dose: 10 mg Documented by: Metoprolol Succinate (Toprol Xl) 100 mg PO BID [facility] Last Admin: 09/02/20 20:23 Dose: 100 mg Documented by: Multivitamins (Thera) 1 each PO DAILY [facility] Last Admin: 09/02/20 10:09 Dose: 1 each Documented by: Nystatin (Nystop) 0 gm TOP BID [facility] Last Admin: 09/02/20 20:28 Dose: 1 applic Documented by: Senna/Docusate Sodium (Senna Plus) 2 tab PO BEDTIME [facility] Last Admin: 09/02/20 20:24 Dose: 2 tab Documented by: Sodium Chloride (Saline Flush) 10 ml FLUSH ASDIRECTED PRN PRN Reason: IV Use Last Admin: 09/03/20 07:03 Dose: 10 ml Documented by: Tiotropium Sandy (Spiriva Handihaler) 18 mcg INH DAILY [facility] Last Admin: 09/02/20 10:00 Dose: 18 mcg Documented by: Discontinued Medications Bisacodyl (Dulcolax) 10 mg PO ONETIME ONE Stop: 08/31/20 11:01 Last Admin: 08/31/20 13:05 Dose: 10 mg Documented by: Bisacodyl (Dulcolax) 10 mg RECTAL ONETIME ONE Stop: 09/01/20 10:27 Last Admin: 09/01/20 13:04 Dose: Not Given Documented by: Bisacodyl (Dulcolax) 10 mg RECTAL ONETIME ONE Stop: 09/01/20 12:46 Last Admin: 09/01/20 13:59 Dose: 10 mg Documented by: Digoxin (Lanoxin) 250 mcg IVPUSH Q6H [facility] Stop: 08/31/20 03:01 Last Admin: 08/31/20 02:39 Dose: 250 mcg Documented by: Diphenhydramine HCl (Benadryl) 25 mg IVPUSH Q4H PRN PRN Reason: Itching Furosemide (Lasix) 20 mg IVPUSH NOW ONE Stop: 08/30/20 08:31 Last Admin: 08/30/20 09:39 Dose: 20 mg Documented by: Furosemide (Lasix) 40 mg IVPUSH NOW ONE Stop: 08/30/20 14:47 Last Admin: 08/30/20 15:21 Dose: 40 mg Documented by: Furosemide (Lasix) 40 mg IVPUSH 0600,1500 [facility] Last Admin: 09/01/20 06:41 Dose: 40 mg Documented by: Furosemide (Lasix) 60 mg IVPUSH 0600,1400 [facility] Last Admin: 09/02/20 05:58 Dose: 60 mg Documented by: Piperacillin Sod/Tazobactam (Sod 3.375 gm/ Sodium Chloride) 100 mls @ 200 mls/hr IV ONETIME ONE Stop: 08/29/20 18:01 Last Admin: 08/29/20 17:39 Dose: 200 mls/hr Documented by: Sodium Chloride (Normal Saline) 1,000 mls @ 1,000 mls/hr IV .BOLUS [facility] Last Infusion: 08/30/20 00:55 Dose: Infused Documented by: Piperacillin Sod/Tazobactam (Sod 2.25 gm/ Sodium Chloride) 50 mls @ 100 mls/hr IV Q6HR [facility] Last Infusion: 08/30/20 00:55 Dose: Infused Documented by: Sodium Chloride (Normal Saline) 1,000 mls @ 500 mls/hr IV .BOLUS [facility] Sodium Chloride (Normal Saline) 1,000 mls @ 100 mls/hr IV ASDIRECTED [facility] Last Admin: 08/30/20 00:58 Dose: 100 mls/hr Documented by: Insulin Glargine (Lantus) 45 unit SUBCUT BEDTIME [facility] Last Admin: 08/30/20 21:59 Dose: Not Given Documented by: Insulin Glargine (Lantus) 10 unit SUBCUT BEDTIME [facility] Last Admin: 08/31/20 21:48 Dose: Not Given Documented by: Insulin Glargine (Lantus) 15 unit SUBCUT BEDTIME [facility] Last Admin: 09/01/20 20:53 Dose: Not Given Documented by: Magnesium Hydroxide (Milk Of Magnesia) 30 ml PO ONETIME ONE Stop: 09/01/20 15:31 Last Admin: 09/01/20 16:30 Dose: 30 ml Documented by: Metoprolol Succinate (Toprol Xl) 100 mg PO DAILY [facility] Last Admin: 08/31/20 13:05 Dose: 100 mg Documented by: Metoprolol Tartrate (Lopressor) 2.5 mg IVPUSH ONETIME ONE Stop: 08/30/20 08:04 Last Admin: 08/30/20 09:50 Dose: 2.5 mg Documented by: Metoprolol Tartrate (Lopressor) 2.5 mg IVPUSH ONETIME ONE Stop: 08/30/20 19:17 Last Admin: 08/30/20 19:40 Dose: 2.5 mg Documented by: Metoprolol Tartrate (Lopressor) 5 mg IVPUSH Q6HR [facility] Last Admin: 08/31/20 05:13 Dose: 5 mg Documented by: Metoprolol Tartrate (Lopressor) 5 mg IVPUSH ONETIME ONE Stop: 08/31/20 14:31 Last Admin: 08/31/20 15:20 Dose: 5 mg Documented by: Midodrine (Midodrine) 5 mg PO ONETIME ONE Stop: 08/30/20 00:35 Last Admin: 08/30/20 01:02 Dose: 5 mg Documented by: Non-Formulary Medication (L.Acidoph,Paracasei, B.Lactis [Probiotic]) 1 each PO DAILY [facility] Last Admin: 08/31/20 12:39 Dose: Not Given Documented by: No Warfarin 0 each PO ONETIME ONE Stop: 08/30/20 14:01 Last Admin: 08/30/20 13:27 Dose: Not Given Documented by: Potassium Chloride (Klor-Con 10) 40 meq PO ONETIME ONE Stop: 08/31/20 07:28 Last Admin: 08/31/20 08:54 Dose: 40 meq Documented by: Warfarin Sodium (Pharmacy To Dose - Warfarin) 1 dose .XX ASDIRECTED [facility] Warfarin Sodium (Coumadin) 10 mg PO ONETIME ONE Stop: 08/31/20 14:01 Last Admin: 08/31/20 15:14 Dose: 10 mg Documented by: Warfarin Sodium (Coumadin) 10 mg PO ONETIME ONE Stop: 09/01/20 14:01 Last Admin: 09/01/20 14:00 Dose: 10 mg Documented by: Warfarin Sodium (Coumadin) 2.5 mg PO ONETIME ONE Stop: 09/02/20 14:01 Last Admin: 09/02/20 14:20 Dose: 2.5 mg Documented by: - Exam Quality Assessment: Reports: Supplemental Oxygen General: Reports: Alert, Cooperative, No Acute Distress HEENT: Reports: Pupils Equal Neck: Reports: Supple Lungs: Reports: Other (dec BS and bibasilar wheezing) Cardiovascular: Reports: No Murmurs, Irregular Rhythm GI/Abdominal Exam: Normal Bowel Sounds, Soft, Non-Tender, Distended Back Exam: Reports: Other (dime sized coccyx stage 3 ) Skin: Reports: Warm, Dry Neurological: Reports: Other (confused) Psy/Mental Status: Reports: Alert, Normal Mood
== END 2020-09-03 10:32 | DRG 871 ==
LOC: DL.ED 15:28 → DL.MS 17:54
PROVIDERS: ADMIT Internal Medicine; ATTEND Internal Medicine
DX: A41.9 Sepsis, unspecified organism (principal); J18.9 Pneumonia, unspecified organism; I50.33 Acute on chronic diastolic (congestive) heart failure; J96.01 Acute respiratory failure with hypoxia; I13.0 Hypertensive heart and chronic kidney disease with heart failure and stage 1 through stage 4 chronic kidney disease, or unspecified chronic kidney disease; I48.20 Chronic atrial fibrillation, unspecified; I24.8 Other forms of acute ischemic heart disease; E87.2 Acidosis; J30.9 Allergic rhinitis, unspecified; H54.7 Unspecified visual loss; N17.9 Acute kidney failure, unspecified; I48.91 Unspecified atrial fibrillation; E78.00 Pure hypercholesterolemia, unspecified; I25.10 Atherosclerotic heart disease of native coronary artery without angina pectoris; E11.22 Type 2 diabetes mellitus with diabetic chronic kidney disease; G31.84 Mild cognitive impairment of uncertain or unknown etiology; R32 Unspecified urinary incontinence; E78.5 Hyperlipidemia, unspecified; C61 Malignant neoplasm of prostate; Z66 Do not resuscitate; Z95.5 Presence of coronary angioplasty implant and graft; Z20.822 Contact with and (suspected) exposure to COVID-19; E11.9 Type 2 diabetes mellitus without complications; Z85.46 Personal history of malignant neoplasm of prostate; I10 Essential (primary) hypertension; N18.30 Chronic kidney disease, stage 3 unspecified; Z79.82 Long term (current) use of aspirin; F32.9 Major depressive disorder, single episode, unspecified; Z79.899 Other long term (current) drug therapy; Z88.8 Allergy status to other drugs, medicaments and biological substances; Z79.01 Long term (current) use of anticoagulants; Z79.4 Long term (current) use of insulin; Z86.16 Personal history of COVID-19; Z95.0 Presence of cardiac pacemaker
CPT/HCPCS: 0240U; 36415; 51701; 51702; 71045; 80048; 80053; 80162; 81001; 82962; 83605; 83735; 83880; 84100; 84484; 85025; 85027; 85610; 87040; 93005; 93306; 96374; 97162; 99284; 99285; A9270-GY; J1160; J1815-GY; J1940; J2543; J3490; J7030; J7040